=== PATIENT | female | born 1945 | race Caucasian/White ===

== ENCOUNTER 2017-01-19 02:50 | Observation (INO) | payer MEDICARE, BC ==
[2017-01-19 03:25] LABS: BASO % 0.9 % (0-6); EOS % 3.7 % (0-6); GRAN % 76.8 % (47-80); HEMATOCRIT 46.5 % (35.0-47.0); HEMOGLOBIN 13.8 gm/dl (11.6-16.0); LYMPH % 13.3 % (16-45); MEAN CELL VOLUME 71.4 fl (81-97); MEAN CORPUSCULAR HEMOGLOBIN 21.1 pg (27-33); MEAN CORPUSCULAR HGB CONC 29.7 g/dl (32-36); MEAN PLATELET VOLUME 10.5 fl (7.4-10.4); MONO % 5.3 % (0-9); PLATELET COUNT 604 K/uL (130-400); RED BLOOD COUNT 6.51 M/uL (3.80-5.40); RED CELL DISTRIBUTION WIDTH 22.5 % (11.5-14.5); WHITE BLOOD COUNT W/O DIFF 12.7 K/uL (4.2-12.2)
[2017-01-19 03:35] LABS: ALB/GLOB RATIO 1.3 (1.1-1.8); ALKALINE PHOSPHATASE 128 U/L (38-126); ALT/SGPT 43 U/L (9-52); ANION GAP 7.2 (7-16); AST/SGOT 33 U/L (14-36); BILIRUBIN,TOTAL 0.97 mg/dL (0.2-1.3); BLOOD UREA NITROGEN 31 mg/dL (7-17); CARBON DIOXIDE 28.8 mmol/L (22-30); CREATININE 0.9 mg/dL (0.52-1.04); EST GLOMERULAR FILTRATION RATE > 60 ml/min; GLUCOSE,RANDOM 249 mg/dL (70-110); TOTAL PROTEIN 7.2 gm/dL (6.3-8.2)
[2017-01-19 03:40] LABS: URINE APPEARANCE CLEAR; URINE BILIRUBIN NEGATIVE (NEGATIVE); URINE COLOR YELLOW; URINE KETONE NEGATIVE (NEGATIVE); URINE LEUKOCYTE ESTERASE NEGATIVE (NEGATIVE); URINE NITRITE NEGATIVE (NEGATIVE); URINE UROBILINOGEN 0.2 E.U./dL (0.20 - 1.00)
[2017-01-19 03:41] LABS: URINE BLOOD NEGATIVE (NEGATIVE)
--- NOTE | 2017-01-19 03:44 | Emergency Department Record ---
History of Present Illness - General Chief Complaint: Headache Migraine Stated Complaint: "SILENT MIGRAINE" NO PAIN Time Seen by Provider: 01/19/17 03:07 Source: Patient Mode of Arrival: Ambulatory Limitations: No limitations - History of Present Illness Initial Comments: for 6 days pt has been having 'spells' that last 1-3 minutes that make her feel 'terrible' and she even had syncope with it tonight. Complaint: Other Onset/Timin -: Days(s) Onset Description: Awoke with symptoms Quality: Other Consistency: Intermittent Improves With: Nothing Worsens With: None Associated Symptoms: Syncope Treatments Prior to Arrival: Acetaminophen - Related Data Home Medications Medication Instructions Recorded Confirmed Last Taken Betaxolol HCl [Betoptic S] 15 ml OP ASDIR 07/25/14 01/19/17 07/25/14 Gabapentin [Neurontin] 800 mg PO DAILY 07/25/14 01/19/17 07/25/14 Insulin Glargine,Hum.rec.anlog 53 unit SQ QHS 07/25/14 01/19/17 1 Day Ago [Lantus] ~07/24/14 Insulin Lispro [Humalog] 15 unit SQ ASDIR 07/25/14 01/19/17 07/25/14 Latanoprost [Xalatan] 2.5 ml OP ASDIR 07/25/14 01/19/17 1 Day Ago ~07/24/14 Levothyroxine Sodium [Unithroid] 150 mcg PO DAILY 07/25/14 01/19/17 07/25/14 Pioglitazone HCl [Actos] 15 mg PO ASDIR 07/25/14 01/19/17 1 Day Ago ~07/24/14 Pravastatin Sodium [Pravachol] 40 mg PO DAILY 07/25/14 01/19/17 1 Day Ago ~07/24/14 Ropinirole HCl [Requip] 0.5 mg PO QHS 07/25/14 01/19/17 1 Day Ago ~07/24/14 Bumetanide [Bumex] 0.5 mg PO ASDIR 05/06/16 01/19/17 Unknown Losartan Potassium [Cozaar] 25 mg PO DAILY 05/06/16 01/19/17 Unknown Acetaminophen [Tylenol Arthritis] 1,300 mg PO BID 01/19/17 01/19/17 Unknown Cholecalciferol (Vitamin D3) 3,000 unit PO DAILY 01/19/17 01/19/17 Unknown [Vitamin D3] Clobetasol Propionate/Emoll 15 gm TP ASDIR 01/19/17 01/19/17 Unknown [Clobetasol Emollient 0.05% Crm] Gabapentin [Neurontin] 400 mg PO QPM 01/19/17 01/19/17 Unknown Gabapentin [Neurontin] 800 mg PO QHS 01/19/17 01/19/17 Unknown Ropinirole HCl [Requip] 0.25 mg PO QPM 01/19/17 01/19/17 Unknown Ropinirole HCl [Requip] 0.375 mg PO QPM 01/19/17 01/19/17 Unknown Allergies Allergy/AdvReac Type Severity Reaction Status Date / Time aspirin AdvReac NAUSEA Verified 07/25/14 16:34 celecoxib [From Celebrex] AdvReac NAUSEA AND Verified 01/19/17 03:03 VOMITING fentanyl AdvReac NAUSEA AND Verified 07/25/14 16:34 VOMITING hydrocodone bitartrate AdvReac NAUSEA AND Verified 07/25/14 16:34 [From Vicodin] VOMITING NSAIDS (Non-Steroidal AdvReac NAUSEA AND Verified 01/19/17 03:03 Anti-Inflamma VOMITING Travel Screening - Travel/Exposure Within Last 30 Days Have you traveled within the last 30 days?: No - Travel/Exposure Within Last Year Have you traveled outside the [place] in the last year?: No - Additonal Travel Details Have you been exposed to anyone with a communicable illness?: No - Travel Symptoms Symptom Screening: None Review of Systems Reviewed: No additional complaints except as noted below Constitutional: Reports: As per HPI. Denies: Chills, Fever, Malaise, Night sweats, Weakness, Weight change Eyes: Reports: As per HPI. Denies: Eye discharge, Eye pain, Photophobia, Vision change ENT: Reports: As per HPI. Denies: Congestion, Dental pain, Ear pain, Epistaxis , Hearing loss, Throat pain Respiratory: Reports: As per HPI. Denies: Cough, Dyspnea, Hemoptysis, Stridor, Wheezes Cardiovascular: Reports: As per HPI. Denies: Arrhythmia, Chest pain, Dyspnea on exertion, Edema, Murmurs, Orthopnea, Palpitations, Paroxysmal nocturnal dyspnea, Rheumatic Fever, Syncope Endocrine: Reports: As per HPI. Denies: Fatigue, Heat or cold intolerance, Polydipsia, Polyuria Gastrointestinal: Reports: As per HPI. Denies: Abdominal pain, Constipation, Diarrhea, Hematemesis, Hematochezia, Melena, Nausea, Vomiting Genitourinary: Reports: As per HPI. Denies: Abnormal menses, Discharge, Dyspareunia, Dysuria, Frequency, Hematuria, Incontinence, Retention, Urgency Musculoskeletal: Reports: As per HPI. Denies: Arthralgia, Back pain, Gout, Joint swelling, Myalgia, Neck pain Skin: Reports: As per HPI. Denies: Bruising, Change in color, Change in hair/ nails, Lesions, Pruritus, Rash Neurological: Reports: As per HPI. Denies: Abnormal gait, Confusion, Headache, Numbness, Paresthesias, Seizure, Tingling, Tremors, Vertigo, Weakness Psychiatric: Reports: As per HPI. Denies: Anxiety, Auditory hallucinations, Depression, Homicidal thoughts, Suicidal thoughts, Visual hallucinations Hematological/Lymphatic: Reports: As per HPI. Denies: Anemia, Blood Clots, Easy bleeding, Easy bruising, Swollen glands Past Medical History - SOCIAL HISTORY Smoking Status: Never smoker Alcohol Use: None Drug Use: None - RESPIRATORY Hx Respiratory Disorders: Yes Hx Asthma: Yes - CARDIOVASCULAR Hx Cardio Disorders: Yes Hx Hypertension: Yes (pulmonary) - NEURO Hx Neuro Disorders: No - GI Hx GI Disorders: No - Hx Genitourinary Disorders: No - ENDOCRINE Hx Endocrine Disorders: Yes Hx Diabetes: Yes Hx Thyroid Disease: Yes - MUSCULOSKELETAL Hx Musculoskeletal Disorders: Yes Hx Arthritis: Yes Hx Fibromyalgia: Yes - PSYCH Hx Psych Problems: No - HEMATOLOGY/ONCOLOGY Hx Hematology/Oncology Disorders: Yes Comment:: polycythemia Family Medical History Any Significant Family History?: No Hx Stroke: Mother Physical Exam - General General Appearance: Alert, Oriented x3, Cooperative, Mild distress - Head Head exam: Normal inspection - Eye Eye exam: Normal appearance, PERRL, EOMI Pupils: Normal accommodation - ENT ENT exam: Normal exam, Mucous membranes moist, Normal external ear exam, Normal orophraynx Ear exam: Normal external inspection. negative: External canal tenderness Nasal Exam: Normal inspection. negative: Discharge, Sinus tenderness Mouth exam: Normal external inspection, Tongue normal Teeth exam: Normal inspection. negative: Dental caries Throat exam: Normal inspection. negative: Tonsillar erythema, Tonsillar exudate - Neck Neck exam: Normal inspection, Full ROM. negative: Tenderness - Respiratory Respiratory exam: Normal lung sounds bilaterally. negative: Respiratory distress - Cardiovascular Cardiovascular Exam: Regular rate, Normal rhythm, Normal heart sounds - GI/Abdominal GI/Abdominal exam: Soft, Normal bowel sounds. negative: Tenderness - Rectal Rectal exam: Deferred - exam: Deferred - Extremities Extremities exam: Normal inspection, Full ROM, Normal capillary refill. negative: Tenderness - Back Back exam: Reports: Normal inspection, Full ROM. Denies: Muscle spasm, Rash noted, Tenderness - Neurological Neurological exam: Alert, CN II-XII intact, Normal gait, Oriented X3 - Psychiatric Psychiatric exam: Normal affect, Normal mood - Skin Skin exam: Dry, Intact, Normal color, Warm Course Vital Signs 01/19/17 02:57 Temperature 97.7 F Pulse Rate [ 84 Pulse Ox Probe] Respiratory 20 Rate Blood Pressure 203/90 [Right Arm] Pulse Ox 94 L Medical Decision Making - Lab Data Result diagrams: 01/19/17 02:40 01/19/17 02:40 Lab Results 01/19/17 Range/Units 02:40 WBC 12.7 H (4.2-12.2) K/uL RBC 6.51 H (3.80-5.40) M/uL Hgb 13.8 (11.6-16.0) gm/dl Hct 46.5 (35.0-47.0) % MCV 71.4 L (81-97) fl MCH 21.1 L (27-33) pg MCHC 29.7 L (32-36) g/dl RDW 22.5 H (11.5-14.5) % Plt Count 604 H (130-400) K/uL MPV 10.5 H (7.4-10.4) fl Gran % 76.8 (47-80) % Lymphocytes % 13.3 L (16-45) % Monocytes % 5.3 (0-9) % Eosinophils % 3.7 (0-6) % Basophils % 0.9 (0-6) % Disposition Disposition: Admit Clinical Impression: Syncope Qualifiers: Syncope type: unspecified Qualified Code(s): R55 - Syncope and collapse Disposition: Still a Patient at [facility] Decision to Admit: Admit from ER Decision to Admit Date: 01/19/17 Decision to Admit Time: 04:58 Forms: Patient Portal Access Quality - Quality Measures Quality Measures: N/A - Blood Pressure Screening Does Patient Have Any of the Following: Active Dx of HTN Blood Pressure Classification: Pre-Hypertensive BP Reading Systolic Measurement: 172 Diastolic Measurement: 81 Screening for High Blood Pressure: Patient Exclusion, Hx of HTN [[id number]] Pre-Hypertensive Follow-up Interventions: Referral to alternative/primary care provider.
[2017-01-19] MEDS ORDERED: LABETALOL HCL 5MG/ML, 20ML VIAL IV ONE (04:23)
[2017-01-19] MEDS ORDERED: NITROGLYCERIN 0.4MG SL TABLET #25 BTL SL PRN (05:55)
[2017-01-19] MEDS ORDERED: BUMETANIDE 1 MG TABLET PO SCH (05:55)
[2017-01-19] MEDS ORDERED: ACETAMINOPHEN 500 MG TABLET PO PRN (05:55)
[2017-01-19] MEDS ORDERED: INSULIN LISPRO 15 UNIT SQ SCH (05:55)
[2017-01-19] MEDS ORDERED: LEVOTHYROXINE SODIUM 150 MCG TABLET PO SCH (06:30)
[2017-01-19] MEDS ORDERED: LEVEMIR FLEXTOUCH 100 UNIT/ML INSULIN PEN SQ SCH (06:30)
--- NOTE | 2017-01-19 08:47 | CT SCAN REPORT ---
EXAM: HEAD CT WITHOUT CONTRAST HISTORY: SYNCOPE, DIZZINESS. TECHNIQUE: Contiguous axial images from the cerebral convexities to the foramen magnum were obtained without contrast. Comparison: None. Encounter: Initial. FINDINGS: The brain volume is normal. No acute intracranial hemorrhage, mass effect, or midline shift. No CT evidence of acute infarct. The ventricles, basal cisterns and sulci are within normal limits. Bilateral lens implants. The osseous structures and soft tissues are unremarkable. IMPRESSION: NO ACUTE INTRACRANIAL PROCESS. JOB NUMBER: [id number] [facility]
[2017-01-19] MEDS ORDERED: HUMALOG SC ONE (09:00)
[2017-01-19] MEDS ORDERED: PATIENT OWN MED: LOSARTAN 25 MG PO SCH (10:00)
[2017-01-19] MEDS ORDERED: LEVOTHYROXINE 150 MCG PO SCH (10:00)
--- NOTE | 2017-01-19 10:09 | History & Physical ---
History of Present Illness - Date of Service Date of Service for History & Physical: 01/19/17 - History of Present Illness Admitting Diagnosis: syncope History of Present Illness: 71 yo female admitted w/ CC of syncopal episode. PMHx of IDDM, obesity, hypothyroidism, RLS, IBS, pulmonary HTN, polycythemia, and urinary incontinence. Patient presented to our ED early this morning by EMS after a syncopal episode. Syncopal episode occurred around 1 am. Patient states she was sitting at the edge of her bed and she lost consciousness. Patient's was present to witness this. Just prior to her LOC, patient had an episode of lightheadedness/ dizziness, however did not loose consciousness during this episode. Her noted that these episodes occurred within 5 minutes of each other. Patient reports episodes of dizziness/fogginess/lightheadedness sporadically since last Monday. Symptoms precipitated by concentration/focusing. Alleviated with rest/sitting still. Associated symptoms include gas/belching. Upon presentation, BP 203/90, HR 84, RR 20, pulse ox 94 on RA, temp 97.7. wbc 12.7, hgb 13.8, hct 46.5, plt 604, BUN 31, Cr 0.9, glucose 249. CE negative x 1. UA negative for infectious process. acetominophen level normal. Head CT negative. EKG: possible tachy-sherman, RBBB. Patient placed on Telemetry and admitted for further medical management. This morning, patient is sitting up in bed with her at bedside. States she's not feeling herself this morning though can't put a finger on what it is. Denies increased SOB, CP, fever, chills, diaphoresis, n/v, headache, abd pain , change in bowel habits, blood in stool, rash, dysphagia, dysuria, weakness or loss in strength. She admits to a significant amount of gas/belching. She denies any h/o CVA or KS. MOther passed of CVA at 83. father passed of cardiac causes at 89yo. Patient follows with Dr. Angelo at [facility] for h/o pulmonary HTN. States she saw him last in September and is scheduled to see him again this month. States Dr. Angelo had discussed going forth with a cardiac cath to evaluate wedge pressure, though she hasn't heard anything more re this. Follows with Dr. Broussard for h/o polycythemia. Scheduled for therapeutic phlebotomy today at [facility]. Patient saw her PCP on Monday and was told she may be having ocular migraines w/o pain. While I was in evaluating patient, she experience a similar episode of lightheadedness/dizziness. Did not loose consciousness. Was able to stay seated up in bed. No CP, SOB, diaphoresis, or weakness during this episode. PCP: Dr. Elkins Hematology: Dr. Broussard Cardiology: Dr. Angelo [facility] Travel Screening - Travel/Exposure Within Last 30 Days Have you traveled within the last 30 days?: No - Travel/Exposure Within Last Year Have you traveled outside the [place] in the last year?: No - Additonal Travel Details Have you been exposed to anyone with a communicable illness?: No - Travel Symptoms Symptom Screening: None Review of Systems Constitutional: Reports: As per HPI. Denies: Chills, Fever, Malaise, Night sweats, Weakness, Weight change Eyes: Reports: As per HPI. Denies: Eye discharge, Eye pain, Photophobia, Vision change ENT: Reports: As per HPI. Denies: Congestion, Dental pain, Ear pain, Epistaxis , Hearing loss, Throat pain Respiratory: Reports: As per HPI. Denies: Cough, Dyspnea, Hemoptysis, Stridor, Wheezes Cardiovascular: Reports: As per HPI. Denies: Arrhythmia, Chest pain, Dyspnea on exertion, Edema, Murmurs, Orthopnea, Palpitations, Paroxysmal nocturnal dyspnea, Rheumatic Fever, Syncope Endocrine: Reports: As per HPI. Denies: Fatigue, Heat or cold intolerance, Polydipsia, Polyuria Gastrointestinal: Reports: As per HPI. Denies: Abdominal pain, Constipation, Diarrhea, Hematemesis, Hematochezia, Melena, Nausea, Vomiting Genitourinary: Reports: As per HPI. Denies: Abnormal menses, Discharge, Dyspareunia, Dysuria, Frequency, Hematuria, Incontinence, Retention, Urgency Musculoskeletal: Reports: As per HPI. Denies: Arthralgia, Back pain, Gout, Joint swelling, Myalgia, Neck pain Skin: Reports: As per HPI. Denies: Bruising, Change in color, Change in hair/ nails, Lesions, Pruritus, Rash Neurological: Reports: As per HPI. Denies: Abnormal gait, Confusion, Headache, Numbness, Paresthesias, Seizure, Tingling, Tremors, Vertigo, Weakness Psychiatric: Reports: As per HPI. Denies: Anxiety, Auditory hallucinations, Depression, Homicidal thoughts, Suicidal thoughts, Visual hallucinations Hematological/Lymphatic: Reports: As per HPI. 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 - GI Hx GI Disorders: Yes Comment:: fluxuates between diarrhea and constipation - Hx Genitourinary Disorders: No Comment:: incontinence - ENDOCRINE Hx Endocrine Disorders: Yes Hx Diabetes: Yes Hx Thyroid Disease: Yes - MUSCULOSKELETAL Hx Musculoskeletal Disorders: Yes Hx Arthritis: Yes Hx Fibromyalgia: Yes - PSYCH Hx Psych Problems: No - HEMATOLOGY/ONCOLOGY Hx Hematology/Oncology Disorders: Yes Comment:: polycythemia Family Medical History Any Significant Family History?: Yes Hx Stroke: Mother H&P Meds/Allergies - Allergies Allergies: Allergies Allergy/AdvReac Type Severity Reaction Status Date / Time aspirin AdvReac NAUSEA Verified 07/25/14 16:34 celecoxib [From Celebrex] AdvReac NAUSEA AND Verified 01/19/17 03:03 VOMITING fentanyl AdvReac NAUSEA AND Verified 07/25/14 16:34 VOMITING hydrocodone bitartrate AdvReac NAUSEA AND Verified 07/25/14 16:34 [From Vicodin] VOMITING NSAIDS (Non-Steroidal AdvReac NAUSEA AND Verified 01/19/17 03:03 Anti-Inflamma VOMITING - Home Medications Home Medications Medication Instructions Recorded Confirmed Last Taken Betaxolol HCl [Betoptic S] 1 drop OPTH Q12H 07/25/14 01/19/17 07/25/14 Gabapentin [Neurontin] 800 mg PO 1600 07/25/14 01/19/17 07/25/14 Insulin Glargine,Hum.rec.anlog 53 unit SQ QHS 07/25/14 01/19/17 1 Day Ago [Lantus] ~07/24/14 Insulin Lispro [Humalog] 15 unit SQ BIDINS 07/25/14 01/19/17 07/25/14 Latanoprost [Xalatan] 1 drop OPTH QHS 07/25/14 01/19/17 1 Day Ago ~07/24/14 Levothyroxine Sodium [Unithroid] 150 mcg PO DAILYTHY 07/25/14 01/19/17 07/25/14 Pioglitazone HCl [Actos] 15 mg PO QHS 07/25/14 01/19/17 1 Day Ago ~07/24/14 Pravastatin Sodium [Pravachol] 40 mg PO QHS 07/25/14 01/19/17 1 Day Ago ~07/24/14 Ropinirole HCl [Requip] 0.5 mg PO 0030 07/25/14 01/19/17 1 Day Ago ~07/24/14 Bumetanide [Bumex] 0.5 mg PO ASDIR PRN 05/06/16 01/19/17 Unknown Losartan Potassium [Cozaar] 25 mg PO DAILY 05/06/16 01/19/17 Unknown Acetaminophen [Tylenol Arthritis] 1,300 mg PO BID 01/19/17 01/19/17 Unknown Cholecalciferol (Vitamin D3) 3,000 unit PO DAILY 01/19/17 01/19/17 Unknown [Vitamin D3] Clobetasol Propionate/Emoll 15 gm TP BID 01/19/17 01/19/17 Unknown [Clobetasol Emollient 0.05% Crm] Gabapentin [Neurontin] 400 mg PO 1900 01/19/17 01/19/17 Unknown Gabapentin [Neurontin] 800 mg PO 0000 01/19/17 01/19/17 Unknown Insulin Lispro [Humalog] 5 unit SQ 1200 01/19/17 01/19/17 Unknown Ropinirole HCl [Requip] 0.25 mg PO 1900 01/19/17 01/19/17 Unknown Ropinirole HCl [Requip] 0.375 mg PO 1600 01/19/17 01/19/17 Unknown - Active Medications Active Medications: Current Medications Acetaminophen (Tylenol 500mg Tab) 1,000 mg PO Q6H PRN PRN Reason: PAIN/TEMP Bumetanide (Bumex) 0.5 mg PO ASDIR DEANDRA Nitroglycerin (Nitrostat 0.4mg) 0.4 mg SL Q5MIN PRN PRN Reason: CHEST PAIN Non-Formulary Medication (Insulin Lispro [Humalog]) 15 unit SQ ASDIR [facility] Patient Own Med: (Gabapentin 400 Mg) 2 each PO 0000 [facility] Patient Own Med: (Ropinirole 0.5 Mg) 1 each PO 0000 [facility] Patient Own Med: Betoptic 0.25% Opth Drops 1 each OPTH Q12H [facility] Patient Own Med: (Gabapentin 400 Mg) 1 each PO 2100 [facility] Patient Own Med: (Gabapentin 400 Mg) 2 each PO 1600 [facility] Patient Own Med: (Losartan 25 Mg) 1 each PO DAILY [facility] Patient Own Med: (Pioglitazone 15 Mg) 1 each PO QHS [facility] Patient Own Med: (Pravastatin 40 Mg) 1 each PO QHS [facility] Patient Own Med: (Ropinirole 0.5 Mg) 0.5 each PO 2100 [facility] Patient Own Med: (Ropinirole 0.5 Mg) 0.75 each PO 1600 [facility] Patient Own Med: (Lantus Insulin) 53 each SC QHS [facility] Patient Own Med: Levothyroxine 150 Mcg 1 each PO DAILYTHY [facility] Physical Exam - Vital Signs Vital Signs: Vital Signs - Last 24 Hrs Temp Pulse Resp BP Pulse Ox 01/19/17 07:55 98.4 F 71 18 144/68 97 01/19/17 06:29 97 01/19/17 05:55 97.8 F 66 26 H 196/93 95 - General General Appearance: Alert, Oriented x3, Cooperative, No acute distress Limitations: No limitations - Head Head exam: Normal inspection - Eye Eye exam: Normal appearance, PERRL, EOMI Pupils: Normal accommodation - ENT ENT exam: Normal exam, Mucous membranes moist, Normal external ear exam, Normal orophraynx Ear exam: Normal external inspection. negative: External canal tenderness Nasal Exam: Normal inspection. negative: Discharge, Sinus tenderness Mouth exam: Normal external inspection, Tongue normal Teeth exam: Normal inspection. negative: Dental caries Throat exam: Normal inspection. negative: Tonsillar erythema, Tonsillar exudate - Neck Neck exam: Normal inspection, Full ROM. negative: Tenderness - Respiratory Respiratory exam: Normal lung sounds bilaterally. negative: Respiratory distress - Cardiovascular Cardiovascular Exam: Regular rate, Normal rhythm, Normal heart sounds - GI/Abdominal GI/Abdominal exam: Soft, Hyperactive bowel sounds. negative: Tenderness - Rectal Rectal exam: Deferred - exam: Deferred - Extremities Extremities exam: Normal inspection, Full ROM, Normal capillary refill. negative: Tenderness - Back Back exam: Reports: Normal inspection, Full ROM. Denies: Muscle spasm, Rash noted, Tenderness - Neurological Neurological exam: Alert, CN II-XII intact, Normal gait, Oriented X3 - Psychiatric Psychiatric exam: Normal affect, Normal mood - Skin Skin exam: Dry, Intact, Normal color, Warm Results - Labs Result Diagrams: 01/19/17 02:40 01/19/17 02:40 VTE H&P Assessment - Risk for VTE Risk for VTE: Yes Risk Level: Moderate Risk Assessment Date: 01/19/17 Risk Assessment Time: 09:30 VTE Orders Placed or Will Be Placed: Yes Plan - Detailed Diagnosis and Plan (1) Syncope Current Visit: Yes Status: Acute Qualifiers: Syncope type: unspecified Qualified Code(s): R55 - Syncope and collapse Base Code: R55 - SYNCOPE AND COLLAPSE Comment: 01/19- neurologic vs. cardiac vs. other? - head ct negative. - EKG: ready by ED physician. possible sherman- tachy episode, RBBB - CE negative x 1, cbc/cmp relatively unremarkable - negative UA - continue telemetry - cardiac consult vs. acute care transfer for further cardiac/neurologic work up (2) IDDM (insulin dependent diabetes mellitus) Current Visit: Yes Status: Acute Base Code: E11.9 - TYPE 2 DIABETES MELLITUS WITHOUT COMPLICATIONS; Z79.4 - AUTHOR AGENT (CURRENT) USE OF INSULIN Comment: 01/19- accu check achqhs - continue home medications (Lantus 53 U qhs, Humalog 15 U sq deandra, actos 15 qhs) (3) DVT prophylaxis Current Visit: Yes Status: Acute Base Code: [id number] - Comment: 01/19- Lovenox 40 mg sq daily (4) Full code status Current Visit: Yes Status: Acute Base Code: Z78.9 - OTHER SPECIFIED HEALTH STATUS Comment: 01/19- pt is full code
[2017-01-19] MEDS ORDERED: ENOXAPARIN 40 MG/0.4 ML SYR SQ SCH (10:45)
--- NOTE | 2017-01-19 10:45 | Discharge Summary ---
Providers Discharge Summary Date: 01/19/17 Date of admission: 01/19/17 05:34 Expected Date of Discharge: 01/19/17 Attending physician: SEPIDEH BUTT Physical Exam - Vital Signs Vital Signs: Vital Signs - Last 24 Hrs Temp Pulse Resp BP Pulse Ox 01/19/17 09:00 70 18 01/19/17 07:55 98.4 F 71 18 144/68 97 01/19/17 06:29 97 01/19/17 05:55 97.8 F 66 26 H 196/93 95 - General General Appearance: Alert, Oriented x3, Cooperative, Mild distress (while in the room for exam due to episode of dizziness/lightheadedness) Limitations: No limitations - Head Head exam: Normal inspection - Eye Eye exam: Normal appearance, PERRL, EOMI Pupils: Normal accommodation - ENT ENT exam: Normal exam, Mucous membranes moist, Normal external ear exam, Normal orophraynx Ear exam: Normal external inspection. negative: External canal tenderness Nasal Exam: Normal inspection. negative: Discharge, Sinus tenderness Mouth exam: Normal external inspection, Tongue normal Teeth exam: Normal inspection. negative: Dental caries Throat exam: Normal inspection. negative: Tonsillar erythema, Tonsillar exudate - Neck Neck exam: Normal inspection, Full ROM. negative: Tenderness - Respiratory Respiratory exam: Normal lung sounds bilaterally. negative: Respiratory distress - Cardiovascular Cardiovascular Exam: Regular rate, Normal rhythm, Normal heart sounds - GI/Abdominal GI/Abdominal exam: Soft, Hyperactive bowel sounds. negative: Tenderness - Rectal Rectal exam: Deferred - exam: Deferred - Extremities Extremities exam: Normal inspection, Full ROM, Normal capillary refill. negative: Tenderness - Back Back exam: Reports: Normal inspection, Full ROM. Denies: Muscle spasm, Rash noted, Tenderness - Neurological Neurological exam: Alert, CN II-XII intact, Normal gait, Oriented X3 - Psychiatric Psychiatric exam: Normal affect, Normal mood - Skin Skin exam: Dry, Intact, Normal color, Warm Hospitalization - Hospitalization Admission Diagnosis: syncope - Problem List/Discharge Diagnosis (1) Syncope Current Visit: Yes Status: Acute Discharge Diagnosis: Syncope type: unspecified Qualified Code(s): R55 - Syncope and collapse Base Code: R55 - SYNCOPE AND COLLAPSE Comment: 01/19- neurologic vs. cardiac vs. other? - head ct negative. - EKG: read by ED physician. possible sherman- tachy episode, RBBB - CE negative x 1, cbc/cmp relatively unremarkable - negative UA - continue telemetry until transfer - Spoke with Dr. Fernandez at [facility] regarding patient's case. He accepts acute care transfer for further medical management noting her h/o syncope, pulm htn and EKG suggesting tachy sherman. (2) IDDM (insulin dependent diabetes mellitus) Current Visit: Yes Status: Acute Base Code: E11.9 - TYPE 2 DIABETES MELLITUS WITHOUT COMPLICATIONS; Z79.4 - [employer] (CURRENT) USE OF INSULIN Comment: 01/19- continue home medications (Lantus 53 U qhs, Humalog 15 U sq jovita, actos 15 qhs) (3) Full code status Current Visit: Yes Status: Acute Base Code: Z78.9 - OTHER SPECIFIED HEALTH STATUS Comment: 01/19- pt remained full code - Hospitalization Course Disposition: Acute Care Hospital Transfer Hospital Course: 71 yo female admitted w/ CC of syncopal episode. PMHx of IDDM, obesity, hypothyroidism, RLS, IBS, pulmonary HTN, polycythemia, and urinary incontinence. Patient presented to our ED early this morning by EMS after a syncopal episode. Syncopal episode occurred around 1 am. Patient states she was sitting at the edge of her bed and she lost consciousness. Patient's was present to witness this. Just prior to her LOC, patient had an episode of lightheadedness/ dizziness, however did not loose consciousness during this episode. Her noted that these episodes occurred within 5 minutes of each other. Patient reports episodes of dizziness/fogginess/lightheadedness sporadically since last Monday. Symptoms precipitated by concentration/focusing. Alleviated with rest/sitting still. Associated symptoms include gas/belching. Upon presentation, BP 203/90, HR 84, RR 20, pulse ox 94 on RA, temp 97.7. wbc 12.7, hgb 13.8, hct 46.5, plt 604, BUN 31, Cr 0.9, glucose 249. CE negative x 1. UA negative for infectious process. acetominophen level normal. Head CT negative. EKG: possible tachy-sherman, RBBB. Patient placed on Telemetry and admitted for further medical management. This morning, patient is sitting up in bed with her at bedside. States she's not feeling herself this morning though can't put a finger on what it is. Denies increased SOB, CP, fever, chills, diaphoresis, n/v, headache, abd pain , change in bowel habits, blood in stool, rash, dysphagia, dysuria, weakness or loss in strength. She admits to a significant amount of gas/belching. She denies any h/o CVA or RI. MOther passed of CVA at 83. father passed of cardiac causes at 89yo. Patient follows with Dr. Angelo at [facility] for h/o pulmonary HTN. States she saw him last in September and is scheduled to see him again this month. States Dr. Angelo had discussed going forth with a cardiac cath to evaluate wedge pressure, though she hasn't heard anything more re this. Follows with Dr. Broussard for h/o polycythemia. Scheduled for therapeutic phlebotomy today at [facility]. Patient saw her PCP on Monday and was told she may be having ocular migraines w/o pain. While I was in evaluating patient, she experience a similar episode of lightheadedness/dizziness. Did not loose consciousness. Was able to stay seated up in bed. No CP, SOB, diaphoresis, or weakness during this episode. PCP: Dr. Elkins Hematology: Dr. Broussard Cardiology: Dr. Angelo [facility] Procedures: Cardiology Procedures 01/19/17 07:15 EKG NOW Discharge Medications - Discharge Medications Home Medications: Ambulatory Orders Betaxolol HCl [Betoptic S] 1 drop OPTH Q12H 07/25/14 [Last Taken 07/25/14] Gabapentin [Neurontin] 800 mg PO 1600 07/25/14 [Last Taken 07/25/14] Insulin Glargine,Hum.rec.anlog [Lantus] 53 unit SQ QHS 07/25/14 [Last Taken 1 Day Ago ~07/24/14] Insulin Lispro [Humalog] 15 unit SQ BIDINS 07/25/14 [Last Taken 07/25/14] Latanoprost [Xalatan] 1 drop OPTH QHS 07/25/14 [Last Taken 1 Day Ago ~07/24/14] Levothyroxine Sodium [Unithroid] 150 mcg PO DAILYTHY 07/25/14 [Last Taken ] Pioglitazone HCl [Actos] 15 mg PO QHS 02/13/15 [Last Taken 1 Day Ago ~07/24/14] Pravastatin Sodium [Pravachol] 40 mg PO QHS 07/25/14 [Last Taken 1 Day Ago ~05/26] Ropinirole HCl [Requip] 0.5 mg PO 0030 07/25/14 [Last Taken 1 Day Ago ~07/24/14] Bumetanide [Bumex] 0.5 mg PO ASDIR PRN 05/06/16 [Last Taken Unknown] Losartan Potassium [Cozaar] 25 mg PO DAILY 05/06/16 [Last Taken Unknown] Acetaminophen [Tylenol Arthritis] 1,300 mg PO BID 01/19/17 [Last Taken Unknown] Cholecalciferol (Vitamin D3) [Vitamin D3] 3,000 unit PO DAILY 01/19/17 [Last Taken Unknown] Clobetasol Propionate/Emoll [Clobetasol Emollient 0.05% Crm] 15 gm TP BID [Last Taken Unknown] Gabapentin [Neurontin] 400 mg PO 1900 01/19/17 [Last Taken Unknown] Gabapentin [Neurontin] 800 mg PO 0000 01/19/17 [Last Taken Unknown] Insulin Lispro [Humalog] 5 unit SQ 1200 01/19/17 [Last Taken Unknown] Ropinirole HCl [Requip] 0.25 mg PO 1900 01/19/17 [Last Taken Unknown] Ropinirole HCl [Requip] 0.375 mg PO 1600 01/19/17 [Last Taken Unknown] Discharge Plan - Discharge Instructions Activity at Discharge: Other (as per [facility]) Diet at Discharge: Diabetic Diet
[2017-01-19] MEDS ORDERED: BETAXOLOL 0.25% OPTH SCH (12:00)
[2017-01-19] MEDS ORDERED: HUMALOG INSULIN SC ONE (12:15)
[2017-01-19 12:37] LABS: CKMB 2.3 ug/L (0-6); TROPONIN I 0.013 ng/mL (0.00-0.034)
[2017-01-19] MEDS ORDERED: PATIENT OWN MED: ROPINIROLE 0.5 MG PO SCH ×2 (16:00→21:00)
[2017-01-19] MEDS ORDERED: PATIENT OWN MED: GABAPENTIN 400 MG PO SCH ×2 (16:00→21:00)
[2017-01-19] MEDS ORDERED: LANTUS INSULIN SC SCH (22:00)
[2017-01-19] MEDS ORDERED: PIOGLITAZONE 15 MG PO SCH (22:00)
[2017-01-19] MEDS ORDERED: PATIENT OWN MED: PRAVASTATIN 40 MG PO SCH (22:00)
[2017-01-20] MEDS ORDERED: PATIENT OWN MED: GABAPENTIN 400 MG PO SCH
[2017-01-20] MEDS ORDERED: PATIENT OWN MED: ROPINIROLE 0.5 MG PO SCH
== END 2017-01-19 13:10 | disposition short-term general hospital (02) ==
LOC: ER 02:50 → MEDSURG 05:34
PROVIDERS: ADMIT Family Medicine; ATTEND Family Medicine
DX: R55 Syncope and collapse (principal); E11.9 Type 2 diabetes mellitus without complications; Z79.4 Long term (current) use of insulin; E03.9 Hypothyroidism, unspecified; I27.2 Other secondary pulmonary hypertension; D45 Polycythemia vera; M79.7 Fibromyalgia; G25.81 Restless legs syndrome
CPT/HCPCS: 99285 ×2; 96374; 85025; 82553; 84484; 80053; 36416; 82948; 81003; 70450; 94760; 93005; 93010; G0378; G0480; 80329; 99236

== ENCOUNTER 2017-01-24 10:14 | Emergency (ER) | payer MEDICARE, BC ==
--- NOTE | 2017-01-24 10:51 | Emergency Department Record ---
History of Present Illness - General Chief Complaint: Seizures Stated Complaint: SEIZURE Time Seen by Provider: 01/24/17 10:25 Source: Patient, Family, EMS Mode of Arrival: Stretcher - History of Present Illness Initial Comments: 71 yo female presents to the ED with recurring episodes of loss of consciousness. She was evaluated and admitted to [facility] on 01/19 for an event. She was transferred to [facility] for further work up and admission for 24 hours per the . He reports she did not have any events in the hospital except a 5 ventricular beats. She had a return of symptoms yesterday with brief LOC. This has occurred several times since then. She has a brief 10 -15 seconds of now feeling well then an abrupt, brief LOC of 2-5 seconds with some shaking witnessed by the . Her PCP is Dr Elkins. Her book illustrator is Dr Angelo. the documented 2 episosed on 01/23 and two episodes today. He reports feeling her radial pulse and noted it to be slowed and irregular then back to normal rate of 60-70. MD Complaint: Loss of consciousness Onset/Timin -: Hour(s) -: Second(s) Seizure History: Other Place: Home Associated Symptoms: Denies other symptoms - Related Data Home Medications Medication Instructions Recorded Confirmed Last Taken Betaxolol HCl [Betoptic S] 1 drop OPTH Q12H 07/25/14 01/24/17 01/23/17 Gabapentin [Neurontin] 800 mg PO 1600 07/25/14 01/24/17 01/23/17 Insulin Glargine,Hum.rec.anlog 53 unit SQ QHS 07/25/14 01/24/17 01/23/17 [Lantus] Insulin Lispro [Humalog] 15 unit SQ BIDINS 07/25/14 01/24/17 01/23/17 Latanoprost [Xalatan] 1 drop OPTH QHS 07/25/14 01/24/17 01/23/17 Levothyroxine Sodium [Unithroid] 150 mcg PO DAILYTHY 07/25/14 01/24/17 01/24/17 Pioglitazone HCl [Actos] 15 mg PO QHS 07/25/14 01/24/17 01/23/17 Pravastatin Sodium [Pravachol] 40 mg PO QHS 07/25/14 01/24/17 01/23/17 Ropinirole HCl [Requip] 0.5 mg PO 0030 07/25/14 01/24/17 01/23/17 Bumetanide [Bumex] 0.5 mg PO ASDIR PRN 05/06/16 01/24/17 01/23/17 Losartan Potassium [Cozaar] 25 mg PO DAILY 05/06/16 01/24/17 01/23/17 Acetaminophen [Tylenol Arthritis] 1,300 mg PO BID 01/19/17 01/24/17 01/23/17 Cholecalciferol (Vitamin D3) 3,000 unit PO DAILY 01/19/17 01/24/17 01/23/17 [Vitamin D3] Clobetasol Propionate/Emoll 15 gm TP BID 01/19/17 01/24/17 01/23/17 [Clobetasol Emollient 0.05% Crm] Gabapentin [Neurontin] 400 mg PO 1900 01/19/17 01/24/17 01/23/17 Gabapentin [Neurontin] 800 mg PO 0000 01/19/17 01/24/17 01/23/17 Insulin Lispro [Humalog] 5 unit SQ 1200 01/19/17 01/24/17 01/23/17 Ropinirole HCl [Requip] 0.25 mg PO 1900 01/19/17 01/24/17 01/23/17 Ropinirole HCl [Requip] 0.375 mg PO 1600 01/19/17 01/24/17 01/23/17 Allergies Allergy/AdvReac Type Severity Reaction Status Date / Time aspirin AdvReac NAUSEA Verified 07/25/14 16:34 celecoxib [From Celebrex] AdvReac NAUSEA AND Verified 01/19/17 03:03 VOMITING fentanyl AdvReac NAUSEA AND Verified 07/25/14 16:34 VOMITING hydrocodone bitartrate AdvReac NAUSEA AND Verified 07/25/14 16:34 [From Vicodin] VOMITING NSAIDS (Non-Steroidal AdvReac NAUSEA AND Verified 01/19/17 03:03 Anti-Inflamma VOMITING Travel Screening - Travel/Exposure Within Last 30 Days Have you traveled within the last 30 days?: No - Travel/Exposure Within Last Year Have you traveled outside the [place] in the last year?: No - Additonal Travel Details Have you been exposed to anyone with a communicable illness?: No - Travel Symptoms Symptom Screening: None Review of Systems Constitutional: Reports: Malaise, Weakness. Denies: Chills, Fever Eyes: Denies: Eye discharge ENT: Denies: Congestion, Throat pain Respiratory: Denies: Cough, Dyspnea, Hemoptysis, Stridor, Wheezes Cardiovascular: Reports: Palpitations, Syncope. Denies: Chest pain Endocrine: Reports: Fatigue Gastrointestinal: Denies: Abdominal pain, Diarrhea, Nausea, Vomiting Genitourinary: Denies: Dysuria, Urgency Musculoskeletal: Denies: Arthralgia, Back pain, Joint swelling, Myalgia Skin: Denies: Bruising, Change in color, Rash Neurological: Reports: Confusion. Denies: Headache, Numbness, Vertigo, Weakness Psychiatric: Denies: Anxiety Hematological/Lymphatic: Denies: Blood Clots, Easy bleeding, Easy bruising, Swollen glands Past Medical History - SOCIAL HISTORY Smoking Status: Never smoker Alcohol Use: None Drug Use: None - RESPIRATORY Hx Respiratory Disorders: Yes Hx Asthma: Yes Hx Sleep Apnea: Yes Hx of CPAP: Yes Comment:: pulmonary hypertension, 2L of O2 when laying down or at night - CARDIOVASCULAR Hx Cardio Disorders: Yes Hx Cardiac Cath: Yes Hx Hypertension: Yes (pulmonary) - NEURO Hx Neuro Disorders: Yes Comment:: visual auras for about 10 years - GI Hx GI Disorders: Yes Comment:: fluxuates between diarrhea and constipation - Hx Genitourinary Disorders: No Comment:: incontinence - ENDOCRINE Hx Endocrine Disorders: Yes Hx Diabetes: Yes Hx Thyroid Disease: Yes - MUSCULOSKELETAL Hx Musculoskeletal Disorders: Yes Hx Arthritis: Yes Hx Fibromyalgia: Yes - PSYCH Hx Psych Problems: No - HEMATOLOGY/ONCOLOGY Hx Hematology/Oncology Disorders: Yes Comment:: polycythemia Family Medical History Any Significant Family History?: No Hx Stroke: Mother Physical Exam - General General Appearance: Alert, Oriented x3, Cooperative, No acute distress Limitations: No limitations - Head Head exam: Normal inspection - Eye Eye exam: Normal appearance, PERRL. negative: Conjunctival injection, Periorbital swelling - ENT ENT exam: Normal exam, Mucous membranes moist Ear exam: Normal external inspection Nasal Exam: Normal inspection Mouth exam: Normal external inspection Teeth exam: Normal inspection Throat exam: Normal inspection - Neck Neck exam: Normal inspection, Full ROM. negative: Tenderness - Respiratory Respiratory exam: Normal lung sounds bilaterally. negative: Respiratory distress, Rhonchi, Stridor, Wheezes - Cardiovascular Cardiovascular Exam: Regular rate, Normal rhythm, Normal heart sounds Peripheral Pulses: 2+: Radial (R), Radial (L), Dorsalis Pedis (R), Dorsalis Pedis (L) - GI/Abdominal GI/Abdominal exam: Soft. negative: Tenderness - Rectal Rectal exam: Deferred - exam: Deferred - Extremities Extremities exam: Normal inspection, Full ROM, Normal capillary refill. negative: Pedal edema, Tenderness - Back Back exam: Reports: Normal inspection, Full ROM. Denies: Muscle spasm, Rash noted, Tenderness - Neurological Neurological exam: Alert, CN II-XII intact, Normal gait, Oriented X3, Reflexes normal. negative: Altered, Motor sensory deficit - Psychiatric Psychiatric exam: Normal affect, Normal mood - Skin Skin exam: Dry, Intact, Normal color, Warm Course Vital Signs 01/24/17 10:20 Temperature 98.1 F Pulse Rate 76 Respiratory 20 Rate Blood Pressure 202/83 Pulse Ox 96 - Reevaluation(s) Reevaluation #1: EKG NSR rate of 76, intervals Qtc 475, [place], QRS 141 with RBBB, ST no acute changes. No changes from 01/19/17 01/24/17 10:51 Reevaluation #2: [facility] EMR reviewed Will obtain [facility] records if available. 01/24/17 10:57 Reevaluation #3: The labs were reviewed No acute changes on the CBC The K on the CMP was 5.4, Magnesium is 1.8 The Troponin is normal 01/24/17 11:35 BP 189/82 01/24/17 11:37 Reevaluation #4: I SW Dr Bobo of [facility] He accepts the patient to [facility] for readmission for syncope 01/24/17 11:[address] was reported as negative 01/24/17 12:18 [facility] was contacted No bed assigned yet The patient and family were updated 01/24/17 13:42 01/24/17 13:55 The patient had a symptomatic episode. Rhythm strips were obtained. She appears to have a Heart bloke. With one time frame of 11 beats without ventricular depolarization. Pacing pads placed The episode resolved and she is asymptomatic ONE CALL was updated. I recommend ED to ED if bed is not available. 01/24/17 14:00 Repeat brief episode occurred with return to NSR and normal mention. 01/24/17 14:24 I ALFREDO Albarran of the ED He accepts the patient for transfer 01/24/17 14:30 Dr Maldonado accepts the patient for transfer to 442- Bed 1. He will be the admitting physician. 01/24/17 14:37 Medical Decision Making - Lab Data Result diagrams: 01/24/17 10:48 01/24/17 10:48 Disposition Disposition: Transfer Clinical Impression: Syncope Qualifiers: Syncope type: unspecified Qualified Code(s): R55 - Syncope and collapse Disposition: Acute Care Hospital Transfer Transfer To: [facility] Reason For Transfer: syncope, EP consult Accepting Physician: Jihan Time Discussed w/Accepting Physician: 11:53 Condition: (2) Stable Forms: Patient Portal Access Time of Disposition: 11:53 Quality - Quality Measures Quality Measures: N/A - Blood Pressure Screening View Details: Yes Does Patient Have Any of the Following: No Blood Pressure Classification: Pre-Hypertensive BP Reading Systolic Measurement: 202 Diastolic Measurement: 83 Screening for High Blood Pressure: < Pre-Hypertensive BP, F/U Documented > [ [id number]] Pre-Hypertensive Follow-up Interventions: Referral to alternative/primary care provider.
[2017-01-24 10:54] LABS: HEMATOCRIT 47.4 % (35.0-47.0); MEAN CELL VOLUME 71.4 fl (81-97); MEAN CORPUSCULAR HGB CONC 29.5 g/dl (32-36); MEAN PLATELET VOLUME 9.9 fl (7.4-10.4); PLATELET COUNT 533 K/uL (130-400); RED BLOOD COUNT 6.64 M/uL (3.80-5.40); RED CELL DISTRIBUTION WIDTH 22.4 % (11.5-14.5); WHITE BLOOD COUNT W/O DIFF 11.7 K/uL (4.2-12.2)
[2017-01-24 10:57] LABS: URINE APPEARANCE CLEAR; URINE BILIRUBIN NEGATIVE (NEGATIVE); URINE BLOOD SMALL (NEGATIVE); URINE COLOR YELLOW; URINE KETONE NEGATIVE (NEGATIVE); URINE LEUKOCYTE ESTERASE NEGATIVE (NEGATIVE); URINE NITRITE NEGATIVE (NEGATIVE); URINE UROBILINOGEN 0.2 E.U./dL (0.20 - 1.00)
[2017-01-24 11:03] LABS: URINE EPITHELIAL CELLS 0 - 2 (FEW); URINE WBC NONE SEEN (0-2/hpf)
[2017-01-24 11:22] LABS: PLATELET ESTIMATE INCREASED (NORMAL)
[2017-01-24 11:25] LABS: ALB/GLOB RATIO 1.3 (1.1-1.8); ALKALINE PHOSPHATASE 106 U/L (38-126); ALT/SGPT 43 U/L (9-52); ANION GAP 5.2 (7-16); AST/SGOT 21 U/L (14-36); BILIRUBIN,TOTAL 1.07 mg/dL (0.2-1.3); BLOOD UREA NITROGEN 23 mg/dL (7-17); CARBON DIOXIDE 29.8 mmol/L (22-30); CREATININE 0.8 mg/dL (0.52-1.04); EST GLOMERULAR FILTRATION RATE > 60 ml/min; GLUCOSE,RANDOM 219 mg/dL (70-110)
[2017-01-24 12:06] LABS: TROPONIN I < 0.012 ng/mL (0.00-0.034)
[2017-01-24] MEDS: NOVOLOG FLEXPEN (INSULIN ASPART) 100 UNITS/ML SQ ONE (13:10)
[2017-01-24] MEDS: MAGNESIUM SULFATE 16 MEQ in 0.9 % SODIUM CHLORIDE 100ML 100 ML IV ONE (14:31)
--- NOTE | 2017-01-26 08:23 | CT SCAN REPORT ---
EXAM: CT OF THE BRAIN WITHOUT CONTRAST HISTORY: SEIZURE. TECHNIQUE: Sequential axial images were obtained from the foramen magnum to the vertex without contrast administration. FINDINGS: The brain volume is normal. There is no large territorial infarct, hemorrhage, mass effect, or midline shift. There is no extraaxial fluid collection. The orbits, paranasal sinuses, and mastoid air cells are normal. IMPRESSION: NO ACUTE INTRACRANIAL ABNORMALITY IS APPRECIATED. JOB NUMBER: [id number] MTDD
== END 2017-01-24 15:00 | disposition short-term general hospital (02) ==
LOC: ER 10:14
DX: R55 Syncope and collapse (principal); I27.2 Other secondary pulmonary hypertension; E11.9 Type 2 diabetes mellitus without complications; Z79.4 Long term (current) use of insulin
CPT/HCPCS: 99285 ×2; 96372; 96365; 83735; 84484; 80053; 36416; 81001; 82948; 85027; 70450; 93005; 93010; J1815

== ENCOUNTER 2017-07-19 14:35 | Observation (INO) | payer MEDICARE, BC ==
--- NOTE | 2017-07-19 15:17 | Emergency Department Record ---
History of Present Illness - General Chief complaint: Female Urogenital Problem Stated complaint: IV ANTIBIOTICS Time Seen by Provider: 07/19/17 15:09 Source: Patient, RN notes reviewed Mode of Arrival: Ambulatory - History of Present Illness Initial comments: patient was seen by her brush cutter Dr. Sarah Martinez and her sensitivity came back pseudomonas and only sensitive to invanz. Patient became septic in Apr 2017 and required intubation at [facility] from a UTI and Sarah FRIEND wanted IV invanc and a pick line and 10 days of invanz. She would manage outpatient antibiotics once it is in place. Patient was on levaquin outpatient but only intermediate sensitivity. Patient failed out patient therapy and she is nauseated. MD Complaint: Dysuria Onset/Timin -: Month(s) Improves with: None Worsens with: None Associated Symptoms: Abdominal pain - Related Data Home Medications Medication Instructions Recorded Confirmed Last Taken Apixaban [Eliquis] 5 mg PO BID 07/19/17 07/19/17 07/19/17 Allergies Allergy/AdvReac Type Severity Reaction Status Date / Time aspirin AdvReac NAUSEA Verified 07/19/17 15:06 celecoxib [From Celebrex] AdvReac NAUSEA AND Verified 07/19/17 15:06 VOMITING fentanyl AdvReac NAUSEA AND Verified 07/19/17 15:06 VOMITING hydrocodone bitartrate AdvReac NAUSEA AND Verified 07/19/17 15:06 [From Vicodin] VOMITING NSAIDS (Non-Steroidal AdvReac NAUSEA AND Verified 07/19/17 15:06 Anti-Inflamma VOMITING sulfamethoxazole AdvReac caused a Verified 07/19/17 15:06 [From Bactrim] kamran trimethoprim [From Bactrim] AdvReac caused a Verified 07/19/17 15:06 kamran Travel Screening - Travel/Exposure Within Last 30 Days Have you traveled within the last 30 days?: No - Travel/Exposure Within Last Year Have you traveled outside the [place] in the last year?: No - Additonal Travel Details Have you been exposed to anyone with a communicable illness?: No - Travel Symptoms Symptom Screening: None Review of Systems Reviewed: No additional complaints except as noted below Constitutional: Reports: As per HPI. Denies: Chills, Fever, Malaise, Night sweats, Weakness, Weight change Eyes: Reports: As per HPI. Denies: Eye discharge, Eye pain, Photophobia, Vision change ENT: Reports: As per HPI. Denies: Congestion, Dental pain, Ear pain, Epistaxis , Hearing loss, Throat pain Respiratory: Reports: As per HPI. Denies: Cough, Dyspnea, Hemoptysis, Stridor, Wheezes Cardiovascular: Reports: As per HPI. Denies: Arrhythmia, Chest pain, Dyspnea on exertion, Edema, Murmurs, Orthopnea, Palpitations, Paroxysmal nocturnal dyspnea, Rheumatic Fever, Syncope Endocrine: Reports: As per HPI. Denies: Fatigue, Heat or cold intolerance, Polydipsia, Polyuria Gastrointestinal: Reports: As per HPI, Nausea. Denies: Abdominal pain, Constipation, Diarrhea, Hematemesis, Hematochezia, Melena, Vomiting Genitourinary: Reports: As per HPI. Denies: Abnormal menses, Discharge, Dyspareunia, Dysuria, Frequency, Hematuria, Incontinence, Retention, Urgency Musculoskeletal: Reports: As per HPI. Denies: Arthralgia, Back pain, Gout, Joint swelling, Myalgia, Neck pain Skin: Reports: As per HPI. Denies: Bruising, Change in color, Change in hair/ nails, Lesions, Pruritus, Rash Neurological: Reports: As per HPI. Denies: Abnormal gait, Confusion, Headache, Numbness, Paresthesias, Seizure, Tingling, Tremors, Vertigo, Weakness Psychiatric: Reports: As per HPI. Denies: Anxiety, Auditory hallucinations, Depression, Homicidal thoughts, Suicidal thoughts, Visual hallucinations Hematological/Lymphatic: Reports: As per HPI. 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 - GI Hx GI Disorders: Yes Comment:: fluxuates between diarrhea and constipation - Hx Genitourinary Disorders: No Comment:: incontinence - ENDOCRINE Hx Endocrine Disorders: Yes Hx Diabetes: Yes Hx Thyroid Disease: Yes - MUSCULOSKELETAL Hx Musculoskeletal Disorders: Yes Hx Arthritis: Yes Hx Fibromyalgia: Yes - PSYCH Hx Psych Problems: No - HEMATOLOGY/ONCOLOGY Hx Hematology/Oncology Disorders: Yes Comment:: polycythemia Family Medical History Any Significant Family History?: No Hx Stroke: Mother Physical Exam - General General Appearance: Alert, Oriented x3, Cooperative, No acute distress - Head Head exam: Normal inspection - Eye Eye exam: Normal appearance, PERRL Pupils: Normal accommodation - ENT ENT exam: Normal exam, Mucous membranes moist, Normal external ear exam, Normal orophraynx, TM's normal bilaterally Ear exam: Normal external inspection. negative: External canal tenderness Nasal Exam: Normal inspection. negative: Discharge, Sinus tenderness Mouth exam: Normal external inspection, Tongue normal Teeth exam: Normal inspection. negative: Dental caries Throat exam: Normal inspection. negative: Tonsillar erythema, Tonsillar exudate - Neck Neck exam: Normal inspection, Full ROM. negative: Tenderness - Respiratory Respiratory exam: Normal lung sounds bilaterally. negative: Respiratory distress - Cardiovascular Cardiovascular Exam: Regular rate, Normal rhythm, Normal heart sounds - GI/Abdominal GI/Abdominal exam: Soft, Normal bowel sounds. negative: Tenderness - Rectal Rectal exam: Deferred - exam: Deferred - Extremities Extremities exam: Normal inspection, Full ROM, Normal capillary refill. negative: Tenderness - Back Back exam: Reports: Normal inspection, Full ROM. Denies: Muscle spasm, Rash noted, Tenderness - Neurological Neurological exam: Alert, Normal gait, Oriented X3, Reflexes normal - Psychiatric Psychiatric exam: Normal affect, Normal mood - Skin Skin exam: Dry, Intact, Normal color, Warm Medical Decision Making - Lab Data Result diagrams: 07/19/17 15:37 07/19/17 15:37 Disposition Clinical Impression: UTI (urinary tract infection) Qualifiers: Urinary tract infection type: acute cystitis Hematuria presence: without hematuria Qualified Code(s): N30.00 - Acute cystitis without hematuria Decision to Admit: Admit from ER Condition: (1) Good Forms: Patient Portal Access Time of Disposition: 16:06 Quality - Quality Measures Quality Measures: N/A - Blood Pressure Screening Does Patient Have Any of the Following: No, Active Dx of HTN Blood Pressure Classification: Hypertensive Reading Systolic Measurement: 174 Diastolic Measurement: 67 Screening for High Blood Pressure: Patient Exclusion, Hx of HTN [G9744]
[2017-07-19 15:46] LABS: HEMATOCRIT 38.8 % (35.0-47.0); MEAN CELL VOLUME 76.4 fl (81-97); MEAN CORPUSCULAR HGB CONC 28.4 g/dl (32-36); MEAN PLATELET VOLUME 10.3 fl (7.4-10.4); PLATELET COUNT 522 K/uL (130-400); RED BLOOD COUNT 5.08 M/uL (3.80-5.40); RED CELL DISTRIBUTION WIDTH 22.6 % (11.5-14.5); WHITE BLOOD COUNT W/O DIFF 10.7 K/uL (4.2-12.2)
[2017-07-19 15:46] LABS: URINE APPEARANCE CLEAR; URINE BILIRUBIN NEGATIVE (NEGATIVE); URINE BLOOD SMALL (NEGATIVE); URINE COLOR YELLOW; URINE GLUCOSE (UA) NEGATIVE (NEGATIVE); URINE KETONE NEGATIVE (NEGATIVE); URINE LEUKOCYTE ESTERASE TRACE (NEGATIVE); URINE NITRITE POSITIVE (NEGATIVE); URINE UROBILINOGEN 0.2 E.U./dL (0.20 - 1.00)
[2017-07-19 15:50] LABS: MEAN CORPUSCULAR HEMOGLOBIN 21.6 pg (27-33)
[2017-07-19 15:57] LABS: CREATININE 1.2 mg/dL (0.5-0.9)
[2017-07-19 15:59] LABS: URINE EPITHELIAL CELLS 0 - 2 (FEW)
[2017-07-19] MEDS ORDERED: ERTAPENEM SODIUM 1 G in 0.9 % SODIUM CHLORIDE 100ML 100 ML IVPB ONE (16:03)
[2017-07-19 16:05] LABS: ANISOCYTOSIS 1+; HYPOCHROMIA 1+; PLATELET ESTIMATE NORMAL (NORMAL)
[2017-07-19] MEDS ORDERED: ACETAMINOPHEN 500 MG TABLET PO PRN (17:10)
[2017-07-19] MEDS ORDERED: ERTAPENEM SODIUM 1 G in 0.9 % SODIUM CHLORIDE 100ML 100 ML IVPB SCH (17:10)
[2017-07-19] MEDS ORDERED: AL HYDROX/MAG HYDROX 30ML UD PO PRN (17:10)
[2017-07-19] MEDS ORDERED: NOVOLOG FLEXPEN (INSULIN ASPART) 100 UNITS/ML SQ SCH (17:15)
[2017-07-19] MEDS ORDERED: LATANOPROST 0.005% OPTH SOLUTION 2.5ML BOTTLE OPTH SCH (22:00)
[2017-07-19] MEDS ORDERED: PIOGLITAZONE HCL 15 MG TABLET PO SCH (22:00)
[2017-07-19] MEDS ORDERED: LEVEMIR FLEXTOUCH 100 UNIT/ML INSULIN PEN SQ SCH (22:00)
[2017-07-19] MEDS ORDERED: ROPINIROLE HCL 0.25 MG PO SCH (22:00)
[2017-07-19] MEDS ORDERED: SIMVASTATIN 20 MG TABLET PO SCH (22:00)
[2017-07-19] MEDS ORDERED: PATIENT OWN MED: MC SCH ×3 (23:00→23:45)
[2017-07-19] MEDS: APIXABAN 5MG TABLET PO SCH (23:06)
[2017-07-19] MEDS: BETAXOLOL HCL OPTH SCH (23:06)
[2017-07-19] MEDS: METOPROLOL TART 50 MG TABLET PO SCH (23:07)
[2017-07-19] MEDS: ROPINIROLE HCL 1 MG TABLET PO SCH (23:08)
[2017-07-19] MEDS: GABAPENTIN 300 MG CAPSULE PO SCH (23:08)
[2017-07-19] MEDS ORDERED: INSULIN GLARGINE MC SCH (23:45)
[2017-07-20 06:41] LABS: HEMATOCRIT 35.2 % (35.0-47.0); HEMOGLOBIN 10.2 gm/dl (11.6-16.0); MEAN CELL VOLUME 75.9 fl (81-97); PLATELET COUNT 468 K/uL (130-400); RED BLOOD COUNT 4.64 M/uL (3.80-5.40); RED CELL DISTRIBUTION WIDTH 21.9 % (11.5-14.5); WHITE BLOOD COUNT W/O DIFF 9.7 K/uL (4.2-12.2)
[2017-07-20] MEDS ORDERED: LEVOTHYROXINE SODIUM 150 MCG TABLET PO SCH (07:00)
[2017-07-20 07:01] LABS: MEAN CORPUSCULAR HEMOGLOBIN 21.9 pg (27-33)
--- NOTE | 2017-07-20 07:40 | History & Physical ---
History of Present Illness - Date of Service Date of Service for History & Physical: 07/20/17 - History of Present Illness Admitting Diagnosis: UTI failed outpatient therapy History of Present Illness: 71yo female with CC of UTI. Patient has history of pulmonary HTN, RANJANA with CPAPC use, T2DM, hypothyroidism, asthma, [place], Afib, pacemaker, urinary incontinence, fibromyalgia, depression and anxiety. Patient presented to the ED yesterday as instructed by her personnel monitor, Dr. Martinez, at [facility]. She has had history of frequent UTI's and antibiotic resistance. She was found to have another UTI, culture came back showing pseudomonas and patient's personnel monitor wanted her admitted for administration of IV abx with her history of becoming septic from a similar infection. While in the ED, UA was repeated and was positive for LE, culture was repeated. WBC count was normal and patient was afebrile. Her renal function was at baseline, stage 3, with BUN of 36 and Cr of 1.2. She was given 1gm of invanz in the ED and admitted for further monitoring and discharge planning. 07/20/17- Patient states she is feeling ok today. Didn't sleep much with uncomfortable bed and having PICC placed so late. She denies any further nausea , no fevers, chills. She denies any weakness or difficulty ambulating from baseline. Her is at bedside and would like to try and have her set up for outpatient abx infusion. nephrology: Dr. Martinez Travel Screening - Travel/Exposure Within Last 30 Days Have you traveled within the last 30 days?: No - Travel/Exposure Within Last Year Have you traveled outside the [place] in the last year?: No - Additonal Travel Details Have you been exposed to anyone with a communicable illness?: No - Travel Symptoms Symptom Screening: None Review of Systems Constitutional: Reports: As per HPI. Denies: Chills, Fever, Malaise, Night sweats, Weakness, Weight change Eyes: Reports: As per HPI. Denies: Eye discharge, Eye pain, Photophobia, Vision change ENT: Reports: As per HPI. Denies: Congestion, Dental pain, Ear pain, Epistaxis , Hearing loss, Throat pain Respiratory: Reports: As per HPI. Denies: Cough, Dyspnea, Hemoptysis, Stridor, Wheezes Cardiovascular: Reports: As per HPI. Denies: Arrhythmia, Chest pain, Dyspnea on exertion, Edema, Murmurs, Orthopnea, Palpitations, Paroxysmal nocturnal dyspnea, Rheumatic Fever, Syncope Endocrine: Reports: As per HPI. Denies: Fatigue, Heat or cold intolerance, Polydipsia, Polyuria Gastrointestinal: Reports: As per HPI. Denies: Abdominal pain, Constipation, Diarrhea, Hematemesis, Hematochezia, Melena, Vomiting Genitourinary: Reports: As per HPI. Denies: Abnormal menses, Discharge, Dyspareunia, Dysuria, Frequency, Hematuria, Incontinence, Retention, Urgency Musculoskeletal: Reports: As per HPI. Denies: Arthralgia, Back pain, Gout, Joint swelling, Myalgia, Neck pain Skin: Reports: As per HPI. Denies: Bruising, Change in color, Change in hair/ nails, Lesions, Pruritus, Rash Neurological: Reports: As per HPI. Denies: Abnormal gait, Confusion, Headache, Numbness, Paresthesias, Seizure, Tingling, Tremors, Vertigo, Weakness Psychiatric: Reports: As per HPI. Denies: Anxiety, Auditory hallucinations, Depression, Homicidal thoughts, Suicidal thoughts, Visual hallucinations Hematological/Lymphatic: Reports: As per HPI. Denies: Anemia, Blood Clots, Easy bleeding, Easy bruising, Swollen glands Past Medical History - SOCIAL HISTORY Smoking Status: Never smoker Alcohol Use: None Drug Use: None - RESPIRATORY Hx Respiratory Disorders: Yes Hx Asthma: Yes Hx Bronchitis: No Hx COPD: No Hx Dyspnea: No Hx Pneumonia: No Hx Pulmonary Embolism: No Hx Sleep Apnea: Yes Hx of CPAP: Yes Comment:: pulmonary hypertension, 2L of O2 when laying down or at night - CARDIOVASCULAR Hx Cardio Disorders: Yes Hx Abnormal EKG: Yes Hx Cardiac Cath: Yes Hx Chest Pain: No Hx CHF: No Hx Deep Vein Thrombosis: No Hx Edema: No Hx Heart Attack: Yes Hx Hypertension: Yes (pulmonary) Hx Hypotension: No Hx Irregular Heartbeat: No Hx Palpitations: No Hx Pacemaker/Defib: Yes Hx Vascular Disease: No Comment:: hx of afib - NEURO Hx Neuro Disorders: Yes Hx Brain Tumor: No Hx CVA: No Hx Dementia: No Hx Dizziness: No Hx Headaches: No Hx Neuropathy: No Hx Parkinson's Disease: No Hx Seizures: No Hx Speech Problem: No Hx TIA: No Comment:: visual auras for about 10 years - GI Hx GI Disorders: Yes Hx Abdominal Pain: No Hx Celiac Disease: No Hx Crohn's Disease: No Hx Diverticulitis: No Hx GI Bleed: No Hx Reflux: No Hx Hepatitis/Jaundice: No Hx Hiatal Hernia: No Hx Irritable Bowel: No Hx Liver Disease: No Hx Nausea/Vomiting: No Hx Obstructive Bowel: No Hx Pancreatitis: No Hx Rectal Bleeding: No Hx Ulcer: No Hx Wt Loss/Wt Gain: No Hx of Polyps: No Comment:: fluxuates between diarrhea and constipation - Hx Genitourinary Disorders: No Comment:: incontinence - ENDOCRINE Hx Endocrine Disorders: Yes Hx Diabetes: Yes Hx Thyroid Disease: Yes - MUSCULOSKELETAL Hx Musculoskeletal Disorders: Yes Hx Arthritis: Yes Hx Back Injury: No Hx Fibromyalgia: Yes Hx Gout: No Hx Musculoskeletal Disease: No Hx Osteoporosis: No - PSYCH Hx Psych Problems: Yes Hx Anxiety: Yes Hx Behavior Problems: No Hx Depression: Yes Hx Emotional Abuse: No Hx Sexual Abuse: No Hx Suicide Attempt: No Major Depressive Episode: No Feelings of Hopelessness: Yes Comment:: has no thoughts of committing suicide. - HEMATOLOGY/ONCOLOGY Hx Hematology/Oncology Disorders: Yes Hx Anemia: Yes Hx Blood Disorders: Yes Hx Bruising: Yes Hx Cancer: Yes (basal cell carcinoma) Hx Chemotherapy: No Hx Radiation Therapy: No Hx Clotting Problems: No Hx Sickle Cell Disease: No Hx Unexplained Bleeding: No Hx Blood Transfusions: No Hx Blood Transfusion Reaction: No Comment:: polycythemia Family Medical History Any Significant Family History?: No Hx Stroke: Mother H&P Meds/Allergies - Allergies Allergies: Allergies Allergy/AdvReac Type Severity Reaction Status Date / Time aspirin AdvReac NAUSEA Verified 07/19/17 15:06 celecoxib [From Celebrex] AdvReac NAUSEA AND Verified 07/19/17 15:06 VOMITING fentanyl AdvReac NAUSEA AND Verified 07/19/17 15:06 VOMITING hydrocodone bitartrate AdvReac NAUSEA AND Verified 07/19/17 15:06 [From Vicodin] VOMITING NSAIDS (Non-Steroidal AdvReac NAUSEA AND Verified 07/19/17 15:06 Anti-Inflamma VOMITING sulfamethoxazole AdvReac caused a Verified 07/19/17 15:06 [From Bactrim] kamran trimethoprim [From Bactrim] AdvReac caused a Verified 07/19/17 15:06 kamran - Home Medications Home Medications Medication Instructions Recorded Confirmed Last Taken Apixaban [Eliquis] 5 mg PO BID 07/19/17 07/19/17 07/19/17 - Active Medications Active Medications: Current Medications Acetaminophen (Tylenol 500mg Tab) 1,000 mg PO Q6H PRN PRN Reason: PAIN/TEMP Al Hydroxide/Mg Hydroxide (Maalox) 30 ml PO Q4H PRN PRN Reason: GI UPSET Apixaban (Eliquis) 5 mg PO BID [facility] Last Admin: 07/19/17 23:06 Dose: 5 mg Gabapentin (Neurontin) 600 mg PO BID [facility] Last Admin: 07/19/17 23:08 Dose: 600 mg Ertapenem 1 g/ Sodium Chloride 100 mls @ 200 mls/hr IVPB Q24H [facility] Last Admin: 07/19/17 18:01 Dose: Not Given Insulin Aspart (Novolog Flexpen) 15 unit SQ TIDINS [facility] Last Admin: 07/19/17 21:45 Dose: Not Given [facility]anop[facility] ([facility]al[facility]) [facility] Last Admin: 07/19/17 23:09 Dose: 1 drop [facility]ine [facility] Last Admin: 07/20/17 06:41 Dose: 150 mcg Losartan Potassium (Losartan Potassium) 100 mg PO DAILY [facility] Metoprolol Tartrate (Lopressor) 50 mg PO BID [facility] Last Admin: 07/19/17 23:07 Dose: 50 mg Non-Formulary Medication (Betaxolol Hcl [Betoptic S]) 1 drop OPTH Q12H [facility] Last Admin: 07/19/17 23:06 Dose: 1 drop Patient Own Med: ([facility]atin 40mg) [facility] Patient Own Med: (Lantus 48 Units Sq) [facility] Pioglitazone HCl (Actos) 15 [facility] PO [facility] Last Admin: 07/19/17 23:04 Dose: 15 mg Ropinirole HCl (Requip) 0.75 mg PO [facility] Last Admin: 07/19/17 23:08 Dose: 0.75 mg Physical Exam - Vital Signs Vital Signs: Vital Signs - Last 24 Hrs Temp Pulse Pulse Resp BP Pulse Ox 07/20/17 06:25 63 18 97 07/20/17 06:00 61 18 132/64 93 L 07/20/17 02:00 97.2 F L 61 18 145/53 99 07/19/17 21:59 97 F L 62 18 168/84 95 07/19/17 21:00 18 07/19/17 18:00 97.7 F 60 18 163/73 95 07/19/17 17:46 16 - General General Appearance: Alert, Oriented x3, Cooperative, No acute distress - Head Head exam: Normal inspection - Eye Eye exam: Normal appearance, PERRL Pupils: Normal accommodation - ENT ENT exam: Normal exam, Mucous membranes moist, Normal external ear exam, Normal orophraynx, TM's normal bilaterally Ear exam: Normal external inspection. negative: External canal tenderness Nasal Exam: Normal inspection. negative: Discharge, Sinus tenderness Mouth exam: Normal external inspection, Tongue normal Teeth exam: Normal inspection. negative: Dental caries Throat exam: Normal inspection. negative: Tonsillar erythema, Tonsillar exudate - Neck Neck exam: Normal inspection, Full ROM. negative: Tenderness - Respiratory Respiratory exam: Normal lung sounds bilaterally. negative: Respiratory distress - Cardiovascular Cardiovascular Exam: Regular rate, Normal rhythm, Systolic murmur - GI/Abdominal GI/Abdominal exam: Soft, Normal bowel sounds. negative: Tenderness - Rectal Rectal exam: Deferred - exam: Deferred - Extremities Extremities exam: Normal inspection, Full ROM, Normal capillary refill. negative: Tenderness - Back Back exam: Reports: Normal inspection, Full ROM. Denies: Muscle spasm, Rash noted, Tenderness - Neurological Neurological exam: Alert, Normal gait, Oriented X3, Reflexes normal - Psychiatric Psychiatric exam: Normal affect, Normal mood - Skin Skin exam: Dry, Intact, Normal color, Warm Results - Labs Result Diagrams: 07/20/17 06:30 07/20/17 06:30 Labs Last 24 Hours: Laboratory Results - last 24 hr 07/20/17 06:30 WBC 9.7 RBC 4.64 Hgb 10.2 L Hct 35.2 MCV 75.9 L MCH 21.9 L MCHC 29.0 L RDW 21.9 H Plt Count 468 H MPV 10.0 Neutrophils % 82.0 H Band Neutrophils % 0.0 Eosinophils % Not Reportable Basophils % Not Reportable Lymphocytes 9.0 L Monocytes 7.0 Basophils 0.0 Eosinophil Count 2.0 VTE H&P Assessment - Risk for VTE Risk for VTE: Yes Risk Level: High Risk Assessment Date: 07/20/17 Risk Assessment Time: 10:01 VTE Orders Placed or Will Be Placed: Yes Plan - Detailed Diagnosis and Plan (1) UTI (urinary tract infection) Current Visit: Yes Status: Acute Qualifiers: Urinary tract infection type: acute cystitis Hematuria presence: without hematuria Qualified Code(s): N30.00 - Acute cystitis without hematuria Base Code: N39.0 - URINARY TRACT INFECTION, SITE NOT SPECIFIED Comment: 07/20/17 - Urine culture and sensitivty from nephrology obtained. culture shows pseudomonas with very few sensitivities. Invanz not covering for pseudomonas. She will need to go home on either meropenum, tobramycin, gentamicin. her WBC count remains normal and she is still afebrile. -PICC line placed last night and in correct position -SW consulted and is working on setting up either in home abx infusion vs outpatient -pharmacy will determine which abx will be least frequent dosing -plan to discharge home once abx coverage has been set up (2) Full code status Current Visit: No Status: Acute Base Code: Z78.9 - OTHER SPECIFIED HEALTH STATUS Comment: 07/20/17- patient is full code (3) DVT prophylaxis Current Visit: Yes Status: Acute Base Code: [id number] - Comment: 07/20/17- patient is high risk with h/o afib. -continue home eliquis 5mg po bid
[2017-07-20 07:47] LABS: ALB/GLOB RATIO 1.1 (1.1-1.8); ALBUMIN 3.4 g/dL (4.0-5.0); BILIRUBIN,TOTAL 0.6 mg/dL (0.2-1.0); TOTAL PROTEIN 6.6 g/dL (6.6-8.7)
[2017-07-20] MEDS: HUMALOG SC SCH ×2 (08:48→12:54)
[2017-07-20] MEDS ORDERED: LOSARTAN POTASSIUM 100 MG TABLET PO SCH (10:00)
[2017-07-20] MEDS: BETAXOLOL HCL OPTH SCH (10:02)
[2017-07-20] MEDS: APIXABAN 5MG TABLET PO SCH (10:06)
[2017-07-20] MEDS: METOPROLOL TART 50 MG TABLET PO SCH (10:07)
[2017-07-20] MEDS: GABAPENTIN 300 MG CAPSULE PO SCH (10:08)
[2017-07-20] MEDS: ROPINIROLE HCL 1 MG TABLET PO SCH (11:15)
[2017-07-20] MEDS ORDERED: GENTAMICIN SULFATE 560 MG in 0.9 % SODIUM CHLORIDE 100ML 100 ML IV ONE (11:30)
--- NOTE | 2017-07-20 11:30 | Discharge Summary ---
Providers Discharge Summary Date: 07/20/17 Date of admission: 07/19/17 17:01 Expected Date of Discharge: 07/20/17 Attending physician: ALBERTO NAPOLES Primary care physician: NIECY DUGAN D.O. Physical Exam - Vital Signs Vital Signs: Vital Signs - Last 24 Hrs Temp Pulse Pulse Resp BP Pulse Ox 07/20/17 06:25 63 18 97 07/20/17 06:00 61 18 132/64 93 L 07/20/17 02:00 97.2 F L 61 18 145/53 99 07/19/17 21:59 97 F L 62 18 168/84 95 07/19/17 21:00 18 07/19/17 18:00 97.7 F 60 18 163/73 95 07/19/17 17:46 16 - General General Appearance: Alert, Oriented x3, Cooperative, No acute distress - Head Head exam: Normal inspection - Eye Eye exam: Normal appearance, PERRL Pupils: Normal accommodation - ENT ENT exam: Normal exam, Mucous membranes moist, Normal external ear exam, Normal orophraynx, TM's normal bilaterally Ear exam: Normal external inspection. negative: External canal tenderness Nasal Exam: Normal inspection. negative: Discharge, Sinus tenderness Mouth exam: Normal external inspection, Tongue normal Teeth exam: Normal inspection. negative: Dental caries Throat exam: Normal inspection. negative: Tonsillar erythema, Tonsillar exudate - Neck Neck exam: Normal inspection, Full ROM. negative: Tenderness - Respiratory Respiratory exam: Normal lung sounds bilaterally. negative: Respiratory distress - Cardiovascular Cardiovascular Exam: Regular rate, Normal rhythm, Systolic murmur - GI/Abdominal GI/Abdominal exam: Soft, Normal bowel sounds. negative: Tenderness - Rectal Rectal exam: Deferred - exam: Deferred - Extremities Extremities exam: Normal inspection, Full ROM, Normal capillary refill. negative: Tenderness - Back Back exam: Reports: Normal inspection, Full ROM. Denies: Muscle spasm, Rash noted, Tenderness - Neurological Neurological exam: Alert, Normal gait, Oriented X3, Reflexes normal - Psychiatric Psychiatric exam: Normal affect, Normal mood - Skin Skin exam: Dry, Intact, Normal color, Warm Hospitalization - Hospitalization Admission Diagnosis: UTI failed outpatient therapy - Problem List/Discharge Diagnosis (1) UTI (urinary tract infection) Current Visit: Yes Status: Acute Discharge Diagnosis: Urinary tract infection type: acute cystitis Hematuria presence: without hematuria Qualified Code(s): N30.00 - Acute cystitis without hematuria Base Code: N39.0 - URINARY TRACT INFECTION, SITE NOT SPECIFIED Comment: 07/20/17 - Urine culture and sensitivty from nephrology obtained. culture shows pseudomonas with very few sensitivities. Discussed with Dr. Martinez. Pharmacy is recommending gentamicin due to dosing being once daily so she doesn't have to come to the hospital several times daily. Dr. Martinez was ok with the recommended dose of 560mg and pharmacy will monitor her renal function. -PICC line placed last night and in correct position -She will receive first dose of gent today prior to discharge -She will return this evening for redraw of labs -pharmacy will continue to monitor renal function with daily lab work -we will obtain BMP/CBC on Monday the and forward results to Dr. Martinez -patient will follow up wtih Dr. Martinez as outpatient. (2) Full code status Current Visit: No Status: Acute Base Code: Z78.9 - OTHER SPECIFIED HEALTH STATUS Comment: 07/20/17- patient is full code (3) DVT prophylaxis Current Visit: Yes Status: Acute Base Code: [id number] - Comment: 07/20/17- patient is high risk with h/o afib. -continue home eliquis 5mg po bid - Hospitalization Course Disposition: Home, Self-Care Hospital Course: 71yo female with CC of UTI. Patient has history of pulmonary HTN, RANJANA with CPAPC use, T2DM, hypothyroidism, asthma, [place], Afib, pacemaker, urinary incontinence, fibromyalgia, depression and anxiety. Patient presented to the ED yesterday as instructed by her equip maint eng, Dr. Martinez, at [facility]. She has had history of frequent UTI's and antibiotic resistance. She was found to have another UTI, culture came back showing pseudomonas and patient's equip maint eng wanted her admitted for administration of IV abx with her history of becoming septic from a similar infection. While in the ED, UA was repeated and was positive for LE, culture was repeated. WBC count was normal and patient was afebrile. Her renal function was at baseline, stage 3, with BUN of 36 and Cr of 1.2. She was given 1gm of invanz in the ED and admitted for further monitoring and discharge planning. 07/20/17- Patient states she is feeling ok today. Didn't sleep much with uncomfortable bed and having PICC placed so late. She denies any further nausea , no fevers, chills. She denies any weakness or difficulty ambulating from baseline. Her is at bedside and would like to try and have her set up for outpatient abx infusion. nephrology: Dr. Martinez Procedures: Imaging and X-Rays 07/20/17 02:37 CHEST 1 VIEW [RAD] Stat Abnormal Labs: Abnormal Lab Results 07/20/17 07/20/17 07/20/17 Range/Units 06:30 06:30 08:00 Hgb 10.2 L (11.6-16.0) gm/dl MCV 75.9 L (81-97) fl MCH 21.9 L (27-33) pg MCHC 29.0 L (32-36) g/dl RDW 21.9 H (11.5-14.5) % Plt Count 468 H (130-400) K/uL Neutrophils % 82.0 H (47-80) % Lymphocytes 9.0 L (16-45) % BUN 32 H (8-23) mg/dL Creatinine 1.0 H (0.5-0.9) mg/dL POC Glucose 115 H (70-110) mg/dL Random Glucose 124 H (74-109) mg/dL Albumin 3.4 L (4.0-5.0) g/dL Condition at Discharge: (2) Stable Discharge Medications - Discharge Medications Home Medications: Ambulatory Orders Betaxolol HCl [Betoptic S] 1 drop OPTH Q12H 07/25/14 [Last Taken 07/18/17] Gabapentin [Neurontin] 800 mg PO 1600 07/25/14 [Last Taken 07/18/17] Insulin Glargine,Hum.rec.anlog [Lantus] 53 unit SQ QHS 07/25/14 [Last Taken 11/27] Insulin Lispro [Humalog] 15 unit SQ BIDINS 07/25/14 [Last Taken 07/19/17] Latanoprost [Xalatan] 1 drop OPTH QHS 07/25/14 [Last Taken 07/18/17] Levothyroxine Sodium [Unithroid] 150 mcg PO DAILYTHY 07/25/14 [Last Taken ] Pioglitazone HCl [Actos] 15 mg PO QHS 07/25/14 [Last Taken 07/18/17] Pravastatin Sodium [Pravachol] 40 mg PO QHS 07/25/14 [Last Taken 07/18/17] Ropinirole HCl [Requip] 0.5 mg PO 0030 07/25/14 [Last Taken 07/18/17] Bumetanide [Bumex] 0.5 mg PO ASDIR PRN 05/06/16 [Last Taken 07/18/17] Losartan Potassium [Cozaar] 100 mg PO DAILY 05/06/16 [Last Taken 07/19/17] Acetaminophen [Tylenol Arthritis] 1,300 mg PO BID 01/19/17 [Last Taken 07/18/17] Cholecalciferol (Vitamin D3) [Vitamin D3] 3,000 unit PO DAILY 01/19/17 [Last Taken 07/19/17] Clobetasol Propionate/Emoll [Clobetasol Emollient 0.05% Crm] 15 gm TP BID [Last Taken 07/18/17] Ropinirole HCl [Requip] 0.25 mg PO 1900 01/19/17 [Last Taken 07/19/17] Lopressor 50 mg PO BID tab 06/13/17 [Last Taken 07/19/17] Apixaban [Eliquis] 5 mg PO BID 07/19/17 [Last Taken 07/19/17] Discharge Plan - Discharge Instructions Activity at Discharge: Resume Usual Activities As Tolerated Diet at Discharge: Diabetic Diet Additional Instructions: Follow up with Dr. Martinez as scheduled. Continue outpatient antibiotic infusion daily here at [facility]. Please call with any questions or concerns Quality Measures - Quality Measures Quality Measures: Advance Directives, Documentation of Current Medications in Medical Record, Elder Maltreatment Screen and Follow-Up Plan, Screening for High Blood Pressure and F/U Documented - Current Medications Quality Measure: Measure #130: Documentation of Current Medications Documentation of Current Medications: <Current Medications Documented/Reviewed> [G8427] - Blood Pressure Screening Quality Measure: Screening for High Blood Pressure and Follow-Up Documented Does Patient Have Any of the Following: Active Dx of HTN Blood Pressure Classification: Pre-Hypertensive BP Reading Systolic Measurement: 132 Diastolic Measurement: 64 Screening for High Blood Pressure: Patient Exclusion, Hx of HTN [G9744] - Advance Directives Quality Measure: Measure #47: Care Plan Advance Directives Established: No Advance Directives Information Provided To Patient: No Advance Directives on File: No Living Will: No Power of Lean Coach: No Advance Care Planning: <Care Plan/Decision Maker Not Decided; Discussed & Documented> [5344F] - Elder Abuse Suspicion Index Screening: Elder Abuse Suspicion Index Screening Rely on people for bathing, dressing, shopping, banking, etc: Yes Prevented from getting food, clothes, medication, etc: No Made to feel shamed or threatened by someone: No Forced to sign papers or use money against will: No Feel afraid, touched in ways not wanted or hurt physically: No Poor eye contact, withdrawn, malnourished, cuts or bruises: No Screening Result: Negative result EASI Reference Information: Kevin KLEIN, Sam C, Marga D, Sarahy Gerber.Development and validation of a tool to assist physicians identification of elder abuse: The Elder Abuse Suspicion Index (EASI ). Journal of Elder Abuse and Neglect, 2008; 20 (3): 276-300. - Elder Maltreatment Screen Quality Measures: Elder Maltreatment Screen and Follow-Up Plan Elder Maltreatment Screen: <Negative, No Follow-Up Plan Required> [G8734]
[2017-07-20] MEDS ORDERED: HEPARIN SODIUM FLUSH 100 UNITS/ML SYR 5ML IVP ONE (14:22)
--- NOTE | 2017-07-20 15:12 | RADIOLOGY REPORT ---
EXAM: CHEST, SINGLE VIEW HISTORY: PICC LINE PLACEMENT. TECHNIQUE: A single AP semi-upright portable view of the chest was obtained. Comparison: None. FINDINGS: There is a dual lead left sided pacemaker in place. A right sided PICC line has also been placed. The PICC is partially obscured by the overlying thoracic spine, but probably terminates in the region of the mid SVC. Cardiomegaly. Mild prominence of the pulmonary vascularity at least in part related to the non-fully upright positioning. Blunting of the left lateral costophrenic angle by fluid or thickened pleura. No pneumothorax evident. Spurring in the spine with a thoracic curve to the right. Degenerative change in the shoulders as well. IMPRESSION: 1. PICC LINE PLACED WITH THE TIP IN THE REGION OF THE MID SVC. 2. CARDIOMEGALY WITH MILD PROMINENCE OF THE PULMONARY VASCULARITY. 3. BLUNTING OF THE LEFT LATERAL COSTOPHRENIC ANGLE. 4. DEGENERATIVE CHANGES IN THE SPINE AND SHOULDERS. JOB NUMBER: [id number] MTDD
[2017-07-20] MEDS ORDERED: LANTUS MC SCH (22:00)
[2017-07-20] MEDS ORDERED: PATIENT OWN MED: MC SCH ×2 (22:00)
[2017-07-20] MEDS ORDERED: PRAVASTATIN 40 MG MC SCH (22:00)
== END 2017-07-20 15:15 | disposition home or self-care (01) ==
LOC: ER 14:35 → MEDSURG 17:01
PROVIDERS: ADMIT Internal Medicine; ATTEND Internal Medicine
DX: N30.00 Acute cystitis without hematuria (principal); I27.0 Primary pulmonary hypertension; B96.5 Pseudomonas (aeruginosa) (mallei) (pseudomallei) as the cause of diseases classified elsewhere; E11.9 Type 2 diabetes mellitus without complications; Z79.4 Long term (current) use of insulin; Z79.84 Long term (current) use of oral hypoglycemic drugs; G47.33 Obstructive sleep apnea (adult) (pediatric); I48.2 Chronic atrial fibrillation; Z79.01 Long term (current) use of anticoagulants; Z95.0 Presence of cardiac pacemaker; M79.7 Fibromyalgia; E03.9 Hypothyroidism, unspecified
CPT/HCPCS: 36569; 99285 ×2; 96365; 96366; 80048; 80053; 36416 ×2; 81001; 82948 ×2; 85027 ×2; 71045; 94760; G0378 ×2; J1335; J1642; J3490; 99217; 99220; 99223; 99239; J1580

== ENCOUNTER 2017-10-13 22:05 | Emergency (ER) | payer MEDICARE, BC ==
--- NOTE | 2017-10-13 22:17 | Emergency Department Record ---
History of Present Illness - General Chief Complaint: Fall Injury Stated Complaint: FALL Time Seen by Provider: 10/13/17 22:14 Source: Patient, EMS Mode of Arrival: Ambulatory - History of Present Illness Initial Comments: 72 yo female presents after a fall. 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 She lost her balance and fell back and to the right. She hit her right elbow and mildly hit her head. No LOC. She had been on Eliquis but this has been held for 4 days due to a dental procedure. No neck, chest, abdomen or new back pain. She has full ROM of the R elbow. No other new extremity pain. She is in her baseline health. NO bleeding after the tooth extraction. MD Complaint: Fall -: Hour(s) (1) Fall From: Standing When Fall Occurred: Just prior to arrival Fall Witnessed: Yes, by family Place Fall Occurred: Home Loss of Consciousness: None Symptoms Prior to Fall: Other (chronic dizziness) Location: Head, Other (right elbow) Location - Extremities: Right: Elbow Severity: Moderate Quality: Aching Context: Other (chronic dizziness due to gentamycin) - [place]i Coma Scale Eye Response: (4) Open spontaneously Motor Response: (6) Obeys commands Verbal Response: (5) Oriented [place] Total: 15 - Related Data Allergies Allergy/AdvReac Type Severity Reaction Status Date / Time aspirin AdvReac NAUSEA Verified 07/19/17 15:06 celecoxib [From Celebrex] AdvReac NAUSEA AND Verified 07/19/17 15:06 VOMITING fentanyl AdvReac NAUSEA AND Verified 07/19/17 15:06 VOMITING hydrocodone bitartrate AdvReac NAUSEA AND Verified 07/19/17 15:06 [From Vicodin] VOMITING NSAIDS (Non-Steroidal AdvReac NAUSEA AND Verified 07/19/17 15:06 Anti-Inflamma VOMITING sulfamethoxazole AdvReac caused a Verified 07/19/17 15:06 [From Bactrim] kamran trimethoprim [From Bactrim] AdvReac caused a Verified 07/19/17 15:06 kamran Review of Systems Constitutional: Denies: Chills, Fever, Malaise, Weakness Eyes: Denies: Eye discharge ENT: Denies: Congestion, Throat pain Respiratory: Denies: Cough, Dyspnea, Hemoptysis, Stridor, Wheezes Cardiovascular: Denies: Chest pain, Syncope Endocrine: Denies: Fatigue, Polydipsia, Polyuria Gastrointestinal: Denies: Abdominal pain, Diarrhea, Nausea, Vomiting Genitourinary: Denies: Dysuria Musculoskeletal: Reports: Arthralgia, Back pain (chronic), Joint swelling Skin: Denies: Bruising, Other Neurological: Denies: Confusion, Headache, Numbness, Tremors, Vertigo, Weakness Psychiatric: Denies: Anxiety Hematological/Lymphatic: Denies: Blood Clots, Easy bleeding, Easy bruising, Swollen glands Past Medical History - SOCIAL HISTORY Smoking Status: Never smoker Drug Use: None - RESPIRATORY Hx Respiratory Disorders: Yes Hx Asthma: Yes Hx Bronchitis: No Hx COPD: No Hx Dyspnea: No Hx Pneumonia: No Hx Pulmonary Embolism: No Hx Sleep Apnea: Yes Hx of CPAP: Yes Comment:: pulmonary hypertension, 2L of O2 when laying down or at night - CARDIOVASCULAR Hx Cardio Disorders: Yes Hx Abnormal EKG: Yes Hx Cardiac Cath: Yes Hx Chest Pain: No Hx CHF: No Hx Deep Vein Thrombosis: No Hx Edema: No Hx Heart Attack: Yes Hx Hypertension: Yes (pulmonary) Hx Hypotension: No Hx Irregular Heartbeat: No Hx Palpitations: No Hx Pacemaker/Defib: Yes Hx Vascular Disease: No Comment:: hx of afib - NEURO Hx Neuro Disorders: Yes Hx Brain Tumor: No Hx CVA: No Hx Dementia: No Hx Dizziness: No Hx Headaches: No Hx Neuropathy: No Hx Parkinson's Disease: No Hx Seizures: No Hx Speech Problem: No Hx TIA: No Comment:: visual auras for about 10 years - GI Hx GI Disorders: Yes Hx Abdominal Pain: No Hx Celiac Disease: No Hx Crohn's Disease: No Hx Diverticulitis: No Hx GI Bleed: No Hx Reflux: No Hx Hepatitis/Jaundice: No Hx Hiatal Hernia: No Hx Irritable Bowel: No Hx Liver Disease: No Hx Nausea/Vomiting: No Hx Obstructive Bowel: No Hx Pancreatitis: No Hx Rectal Bleeding: No Hx Ulcer: No Hx Wt Loss/Wt Gain: No Hx of Polyps: No Comment:: fluxuates between diarrhea and constipation - Hx Genitourinary Disorders: No Comment:: incontinence - ENDOCRINE Hx Endocrine Disorders: Yes Hx Diabetes: Yes Hx Thyroid Disease: Yes - MUSCULOSKELETAL Hx Musculoskeletal Disorders: Yes Hx Arthritis: Yes Hx Back Injury: No Hx Fibromyalgia: Yes Hx Gout: No Hx Musculoskeletal Disease: No Hx Osteoporosis: No - PSYCH Hx Psych Problems: Yes Hx Anxiety: Yes Hx Behavior Problems: No Hx Depression: Yes Hx Emotional Abuse: No Hx Sexual Abuse: No Hx Suicide Attempt: No Comment:: has no thoughts of committing suicide. - HEMATOLOGY/ONCOLOGY Hx Hematology/Oncology Disorders: Yes Hx Anemia: Yes Hx Blood Disorders: Yes Hx Bruising: Yes Hx Cancer: Yes (basal cell carcinoma) Hx Chemotherapy: No Hx Radiation Therapy: No Hx Clotting Problems: No Hx Sickle Cell Disease: No Hx Unexplained Bleeding: No Hx Blood Transfusions: No Hx Blood Transfusion Reaction: No Comment:: polycythemia Family Medical History Hx Stroke: Mother Physical Exam - General General Appearance: Alert, Oriented x3, Cooperative, No acute distress Limitations: No limitations - Head Head exam: Normocephalic, Normal inspection. negative: Atraumatic Head exam detail: negative: Abrasion, Contusion, Hematoma - Eye Eye exam: Normal appearance, PERRL. negative: Conjunctival injection, Scleral icterus - ENT ENT exam: Normal exam, Mucous membranes moist Ear exam: Normal external inspection Nasal Exam: Normal inspection Mouth exam: Normal external inspection - Neck Neck exam: Normal inspection - Respiratory Respiratory exam: Normal lung sounds bilaterally. negative: Respiratory distress, Rhonchi, Stridor, Wheezes - Cardiovascular Cardiovascular Exam: Regular rate, Normal rhythm, Normal heart sounds Peripheral Pulses: 2+: Radial (R), Radial (L) - GI/Abdominal GI/Abdominal exam: Soft - Rectal Rectal exam: Deferred - exam: Deferred - Extremities Extremities exam: Other (Laceration). negative: Normal inspection Image of Full Body: 1 - 2cm linear clean laceration to the right elbow - Back Back exam: Reports: Other (She sits up without assist, no bruising, or abrasions ). Denies: CVA tenderness (R), CVA tenderness (L), Paraspinal tenderness, Tenderness, Vertebral tenderness - Neurological Neurological exam: Alert, Oriented X3. negative: Motor sensory deficit - Psychiatric Psychiatric exam: negative: Agitated, Anxious - Skin Skin exam: Other (Right elbow laceration) Course Vital Signs 10/13/17 22:12 Pulse Rate [ 78 Pulse Ox Probe] Respiratory 16 Rate Blood Pressure 182/71 [Left Arm] Pulse Ox 96 - Reevaluation(s) Reevaluation #1: 10/13/17 23:05 Procedure Laceration R elbow 2.5cm Linear Betadine Prep NS copious irrigation Prolene Suture 4-0 3 sutures placed Well tolerated. 10/13/17 23:10 The HCT was negative for acute injury The elbow XR was negative for acute fracture We discussed home care of the sutures and reasons to return to the ED Suture removal in one week Disposition Disposition: Discharge Clinical Impression: Fall Qualifiers: Encounter type: initial encounter Qualified Code(s): W19.XXXA - Unspecified fall, initial encounter Elbow laceration Qualifiers: Encounter type: initial encounter Laterality: right Qualified Code(s): S51.011A - Laceration without foreign body of right elbow, initial encounter Disposition: Home, Self-Care Condition: (1) Good Instructions: Laceration (ED), Fall Prevention for Older Adults (ED) Additional Instructions: Return if you have any new pain, swelling or concerns Use your walker at all times Return or see your doctor in 7 days to have the sutures removed Forms: Patient Portal Access Time of Disposition: 23:10 Quality - Quality Measures Quality Measures: N/A - Blood Pressure Screening Does Patient Have Any of the Following: Active Dx of HTN Blood Pressure Classification: Hypertensive Reading Systolic Measurement: 176 Diastolic Measurement: 61 Screening for High Blood Pressure: Patient Exclusion, Hx of HTN [G9744]
--- NOTE | 2017-10-15 20:43 | RADIOLOGY REPORT ---
EXAM: ELBOW, RIGHT 3 VIEWS HISTORY: PATIENT FELL AND LANDED ON RIGHT ELBOW WITH LACERATION. TECHNIQUE: Three views right elbow. COMPARISON: None. ENCOUNTER: Initial. FINDINGS: Mild degenerative arthritis right elbow. Spur posteriorly at the olecranon as well. Some air in the soft tissues overlying the proximal ulna posteriorly consistent with the history of laceration. No definite acute fracture, dislocation, or joint effusion identified. Some spurring involving the medial epicondyle of the distal humerus as well. IMPRESSION: 1. SOME SPURRING ABOUT THE ELBOW. 2. SOFT TISSUE SWELLING POSTERIORLY WITH SOME AIR IN THE SOFT TISSUES CONSISTENT WITH LACERATION. 3. NO DEFINITE ACUTE FRACTURE OR JOINT EFFUSION IDENTIFIED. JOB NUMBER: [id number] [facility]
--- NOTE | 2017-10-15 20:46 | CT SCAN REPORT ---
EXAM: CT SCAN HEAD WO CONTRAST HISTORY: PATIENT FELL AND HIT BACK OF HEAD. TECHNIQUE: Axial CT scan of the head performed without IV contrast. COMPARISON: Head CT 01/24/17. ENCOUNTER: Initial. FINDINGS: No definite acute intracranial hemorrhage identified. No focal mass effect or midline shift apparent. Mild generalized atrophy as before. No depressed calvarial fracture evident. No acute infarct or intracranial mass lesion seen. IMPRESSION: 1. GENERALIZED ATROPHY. 2. NO ACUTE INTRACRANIAL HEMORRHAGE OR FOCAL MASS EFFECT IDENTIFIED. JOB NUMBER: [id number] [facility]
== END 2017-10-13 23:20 | disposition home or self-care (01) ==
LOC: ER 22:05
DX: S51.011A Laceration without foreign body of right elbow, initial encounter (principal); S09.90XA Unspecified injury of head, initial encounter; R42 Dizziness and giddiness; I27.20 Pulmonary hypertension, unspecified; I48.91 Unspecified atrial fibrillation; I25.2 Old myocardial infarction; Z79.01 Long term (current) use of anticoagulants; W01.10XA Fall on same level from slipping, tripping and stumbling with subsequent striking against unspecified object, initial encounter; Y92.009 Unspecified place in unspecified non-institutional (private) residence as the place of occurrence of the external cause
CPT/HCPCS: 12001; 70450; 99283; 99284

== ENCOUNTER 2017-10-23 13:59 | Emergency (ER) | payer MEDICARE, BC ==
--- NOTE | 2017-10-23 14:31 | Emergency Department Record ---
History of Present Illness - General Chief Complaint: Suture removal Stated Complaint: SUTURE REMOVAL RT ELBOW Time Seen by Provider: 10/23/17 14:30 Source: Patient Mode of arrival: Ambulatory Limitations: No limitations - History of Present Illness MD Complaint: Suture/staple removal -: Week(s) Returns Today for: Staple/stitch removal Symptoms Since Prior Visit: No new symptoms Associated Symptoms: None - Related Data Allergies Allergy/AdvReac Type Severity Reaction Status Date / Time aspirin AdvReac NAUSEA Verified 10/23/17 14:18 celecoxib [From Celebrex] AdvReac NAUSEA AND Verified 10/23/17 14:18 VOMITING fentanyl AdvReac NAUSEA AND Verified 10/23/17 14:18 VOMITING hydrocodone bitartrate AdvReac NAUSEA AND Verified 10/23/17 14:18 [From Vicodin] VOMITING NSAIDS (Non-Steroidal AdvReac NAUSEA AND Verified 10/23/17 14:18 Anti-Inflamma VOMITING sulfamethoxazole AdvReac caused a Verified 10/23/17 14:18 [From Bactrim] kamran trimethoprim [From Bactrim] AdvReac caused a Verified 10/23/17 14:18 kamran Travel Screening - Travel/Exposure Within Last 30 Days Have you traveled within the last 30 days?: No Review of Systems Constitutional: Denies: Chills, Fever Respiratory: Denies: Cough, Dyspnea Cardiovascular: Denies: Chest pain Endocrine: Denies: Fatigue Gastrointestinal: Denies: Nausea, Vomiting Musculoskeletal: Denies: Arthralgia, Back pain, Gout, Joint swelling, Myalgia Skin: Denies: Bruising, Change in color, Rash Neurological: Denies: Headache Psychiatric: Denies: Anxiety Hematological/Lymphatic: Denies: Easy bleeding, Easy bruising Past Medical History - SOCIAL HISTORY Smoking Status: Never smoker Alcohol Use: None Drug Use: None - RESPIRATORY Hx Respiratory Disorders: Yes Hx Asthma: Yes Hx Bronchitis: No Hx COPD: No Hx Dyspnea: No Hx Pneumonia: No Hx Pulmonary Embolism: No Hx Sleep Apnea: Yes Hx of CPAP: Yes Comment:: pulmonary hypertension, 2L of O2 when laying down or at night - CARDIOVASCULAR Hx Cardio Disorders: Yes Hx Abnormal EKG: Yes Hx Cardiac Cath: Yes Hx Chest Pain: No Hx CHF: No Hx Deep Vein Thrombosis: No Hx Edema: No Hx Heart Attack: Yes Hx Hypertension: Yes (pulmonary) Hx Hypotension: No Hx Irregular Heartbeat: No Hx Palpitations: No Hx Pacemaker/Defib: Yes Hx Vascular Disease: No Comment:: hx of afib - NEURO Hx Neuro Disorders: Yes Hx Brain Tumor: No Hx CVA: No Hx Dementia: No Hx Dizziness: No Hx Headaches: No Hx Neuropathy: No Hx Parkinson's Disease: No Hx Seizures: No Hx Speech Problem: No Hx TIA: No Comment:: visual auras for about 10 years - GI Hx GI Disorders: Yes Hx Abdominal Pain: No Hx Celiac Disease: No Hx Crohn's Disease: No Hx Diverticulitis: No Hx GI Bleed: No Hx Reflux: No Hx Hepatitis/Jaundice: No Hx Hiatal Hernia: No Hx Irritable Bowel: No Hx Liver Disease: No Hx Nausea/Vomiting: No Hx Obstructive Bowel: No Hx Pancreatitis: No Hx Rectal Bleeding: No Hx Ulcer: No Hx Wt Loss/Wt Gain: No Hx of Polyps: No Comment:: fluxuates between diarrhea and constipation - Hx Genitourinary Disorders: No Comment:: incontinence - ENDOCRINE Hx Endocrine Disorders: Yes Hx Diabetes: Yes Hx Thyroid Disease: Yes - MUSCULOSKELETAL Hx Musculoskeletal Disorders: Yes Hx Arthritis: Yes Hx Back Injury: No Hx Fibromyalgia: Yes Hx Gout: No Hx Musculoskeletal Disease: No Hx Osteoporosis: No - PSYCH Hx Psych Problems: Yes Hx Anxiety: Yes Hx Behavior Problems: No Hx Depression: Yes Hx Emotional Abuse: No Hx Sexual Abuse: No Hx Suicide Attempt: No Comment:: has no thoughts of committing suicide. - HEMATOLOGY/ONCOLOGY Hx Hematology/Oncology Disorders: Yes Hx Anemia: Yes Hx Blood Disorders: Yes Hx Bruising: Yes Hx Cancer: Yes (basal cell carcinoma) Hx Chemotherapy: No Hx Radiation Therapy: No Hx Clotting Problems: No Hx Sickle Cell Disease: No Hx Unexplained Bleeding: No Hx Blood Transfusions: No Hx Blood Transfusion Reaction: No Comment:: polycythemia Family Medical History Any Significant Family History?: Yes Hx Stroke: Mother Physical Exam - General General Appearance: Alert, Oriented x3, Cooperative, No acute distress Limitations: No limitations - Head Head exam: Atraumatic - Eye Eye exam: Normal appearance - ENT ENT exam: Normal exam - Neck Neck exam: Normal inspection - Rectal Rectal exam: Deferred - exam: Deferred - Extremities Extremities exam: Normal inspection, Full ROM. negative: Tenderness - Back Back exam: Reports: Normal inspection - Neurological Neurological exam: Alert, Oriented X3 - Psychiatric Psychiatric exam: Normal affect, Normal mood - Skin Skin exam: Dry, Intact, Normal color, Warm, Other (Well healed no warmth or redness) Course Vital Signs 10/23/17 14:19 Temperature 97.9 F Pulse Rate 61 Respiratory 18 Rate Blood Pressure 150/72 Pulse Ox 92 L - Reevaluation(s) Reevaluation #1: sutures removed without difficulty 10/24/17 08:17 Disposition Disposition: Discharge Clinical Impression: Visit for suture removal Disposition: Home, Self-Care Condition: (1) Good Instructions: Stitches Removal (ED) Additional Instructions: Return if you have any concerns about the healing of the elbow laceration Forms: Patient Portal Access Time of Disposition: 14:31 Quality - Quality Measures Quality Measures: N/A - Blood Pressure Screening Does Patient Have Any of the Following: Active Dx of HTN Blood Pressure Classification: Hypertensive Reading Systolic Measurement: 150 Diastolic Measurement: 72 Screening for High Blood Pressure: Patient Exclusion, Hx of HTN [G9744]
== END 2017-10-23 14:50 | disposition home or self-care (01) ==
LOC: ER 13:59
DX: Z48.02 Encounter for removal of sutures (principal)

== ENCOUNTER 2019-07-11 22:46 | Emergency (ER) | payer MEDICARE, BC ==
--- NOTE | 2019-07-11 23:10 | Emergency Department Record ---
History of Present Illness - General Chief complaint: Weakness Stated complaint: WEAKNESS Time Seen by Provider: 07/11/19 22:53 Source: Patient, EMS Mode of Arrival: EMS Limitations: No limitations - History of Present Illness Initial comments: 73 yo female presents to ED for evaluation of an episode of feeling "flushed, limbs were heavy, thing got dark-I just felt weird". Patient's SO reports similar symptoms following TIA x 2, is currently being followed by Dr. Alston [facility]. 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 Patient reports that her symptoms have resolved and that she is feeling back to her baseline. 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 MD Complaint: Generalized weakness Onset/Timin -: Minutes(s) Location: LLE, RLE Severity: Moderate Consistency: Now resolved Improves with: None Worsens with: None Associated Symptoms: Denies other symptoms - Leti Coma Scale Eye Response: (4) Open spontaneously Motor Response: (6) Obeys commands Verbal Response: (5) Oriented Leti Total: 15 - Related Data Home Medications Medication Instructions Recorded Confirmed Last Taken Amlodipine Besylate [Norvasc] 5 mg PO DAILY 07/11/19 07/11/19 07/11/19 Metoprolol Tartrate [Lopressor] 1 tab PO BID 07/11/19 07/11/19 07/11/19 Allergies Allergy/AdvReac Type Severity Reaction Status Date / Time aspirin AdvReac NAUSEA Verified 10/23/17 14:18 celecoxib [From Celebrex] AdvReac NAUSEA AND Verified 10/23/17 14:18 VOMITING fentanyl AdvReac NAUSEA AND Verified 10/23/17 14:18 VOMITING gentamicin AdvReac RASH Verified 07/11/19 22:59 hydrocodone bitartrate AdvReac NAUSEA AND Verified 10/23/17 14:18 [From Vicodin] VOMITING NSAIDS (Non-Steroidal AdvReac NAUSEA AND Verified 10/23/17 14:18 Anti-Inflamma VOMITING sulfamethoxazole AdvReac caused a Verified 10/23/17 14:18 [From Bactrim] kamran trimethoprim [From Bactrim] AdvReac caused a Verified 10/23/17 14:18 kamran Travel Screening - Travel/Exposure Within Last 30 Days Have you traveled within the last 30 days?: No - Travel/Exposure Within Last Year Have you traveled outside the [place] in the last year?: No - Additonal Travel Details Have you been exposed to anyone with a communicable illness?: No - Travel Symptoms Symptom Screening: None Review of Systems Constitutional: Reports: Weakness. Denies: Chills, Fever, Malaise, Night sweats Eyes: Denies: Eye discharge, Eye pain ENT: Denies: Congestion, Ear pain Respiratory: Denies: Cough, Dyspnea Cardiovascular: Denies: Chest pain, Dyspnea on exertion Endocrine: Reports: Fatigue. Denies: Heat or cold intolerance Gastrointestinal: Denies: Abdominal pain, Nausea, Vomiting Genitourinary: Denies: Incontinence, Retention Musculoskeletal: Denies: Arthralgia, Back pain Skin: Denies: Bruising, Change in color Neurological: Denies: Abnormal gait, Confusion, Headache, Seizure Psychiatric: Denies: Anxiety Hematological/Lymphatic: Reports: Easy bleeding, Easy bruising. Denies: Anemia, Blood Clots Past Medical History - SOCIAL HISTORY Smoking Status: Never smoker Alcohol Use: None Drug Use: None - RESPIRATORY Hx Respiratory Disorders: Yes Hx Asthma: Yes Hx Bronchitis: No Hx COPD: No Hx Dyspnea: No Hx Pneumonia: No Hx Pulmonary Embolism: No Hx Sleep Apnea: Yes Hx of CPAP: Yes Comment:: pulmonary hypertension, 2L of O2 when laying down or at night - CARDIOVASCULAR Hx Cardio Disorders: Yes Hx Abnormal EKG: Yes Hx Cardiac Cath: Yes Hx Chest Pain: No Hx CHF: No Hx Deep Vein Thrombosis: No Hx Edema: No Hx Heart Attack: Yes Hx Hypertension: Yes (pulmonary) Hx Hypotension: No Hx Irregular Heartbeat: No Hx Palpitations: No Hx Pacemaker/Defib: Yes Hx Vascular Disease: No Comment:: hx of afib - NEURO Hx Neuro Disorders: Yes Hx Brain Tumor: No Hx CVA: No Hx Dementia: No Hx Dizziness: No Hx Headaches: No Hx Neuropathy: No Hx Parkinson's Disease: No Hx Seizures: No Hx Speech Problem: No Hx TIA: No Comment:: visual auras for about 10 years - GI Hx GI Disorders: Yes Hx Abdominal Pain: No Hx Celiac Disease: No Hx Crohn's Disease: No Hx Diverticulitis: No Hx GI Bleed: No Hx Reflux: No Hx Hepatitis/Jaundice: No Hx Hiatal Hernia: No Hx Irritable Bowel: No Hx Liver Disease: No Hx Nausea/Vomiting: No Hx Obstructive Bowel: No Hx Pancreatitis: No Hx Rectal Bleeding: No Hx Ulcer: No Hx Wt Loss/Wt Gain: No Hx of Polyps: No Comment:: fluxuates between diarrhea and constipation - Hx Genitourinary Disorders: No Comment:: incontinence - ENDOCRINE Hx Endocrine Disorders: Yes Hx Diabetes: Yes Hx Thyroid Disease: Yes - MUSCULOSKELETAL Hx Musculoskeletal Disorders: Yes Hx Arthritis: Yes Hx Back Injury: No Hx Fibromyalgia: Yes Hx Gout: No Hx Musculoskeletal Disease: No Hx Osteoporosis: No - PSYCH Hx Psych Problems: Yes Hx Anxiety: Yes Hx Behavior Problems: No Hx Depression: Yes Hx Emotional Abuse: No Hx Sexual Abuse: No Hx Suicide Attempt: No Comment:: has no thoughts of committing suicide. - HEMATOLOGY/ONCOLOGY Hx Hematology/Oncology Disorders: Yes Hx Anemia: Yes Hx Blood Disorders: Yes Hx Bruising: Yes Hx Cancer: Yes (basal cell carcinoma) Hx Chemotherapy: No Hx Radiation Therapy: No Hx Clotting Problems: No Hx Sickle Cell Disease: No Hx Unexplained Bleeding: No Hx Blood Transfusions: No Hx Blood Transfusion Reaction: No Comment:: polycythemia Family Medical History Any Significant Family History?: No Hx Stroke: Mother Physical Exam - General General Appearance: Alert, Oriented x3, Cooperative, No acute distress Limitations: No limitations - Head Head exam: Atraumatic, Normocephalic, Normal inspection Head exam detail: negative: Abrasion, Contusion, Mcfadden's sign, General tenderness, Hematoma, Laceration - Eye Eye exam: Normal appearance. negative: Conjunctival injection, Periorbital swelling, Periorbital tenderness, Scleral icterus - ENT Ear exam: negative: Auricular hematoma, Auricular trauma Nasal Exam: negative: Active bleeding, Discharge, Dried blood, Foreign body Mouth exam: negative: Drooling, Laceration, Muffled voice, Tongue elevation - Neck Neck exam: Normal inspection. negative: Meningismus, Tenderness - Respiratory Respiratory exam: Normal lung sounds bilaterally. negative: Rales, Respiratory distress, Rhonchi, Stridor - Cardiovascular Cardiovascular Exam: Regular rate, Normal rhythm, Normal heart sounds - GI/Abdominal GI/Abdominal exam: Soft. negative: Rebound, Rigid, Tenderness - Rectal Rectal exam: Deferred - exam: Deferred - Extremities Extremities exam: Pedal edema, Other (Chronic ulcerations to the LEs bilaterally) - Back Back exam: Denies: CVA tenderness (R), CVA tenderness (L) - Neurological Neurological exam: Alert, CN II-XII intact, Oriented X3, Other (NIH stroke scale 0 on examination.). negative: Motor sensory deficit - Psychiatric Psychiatric exam: Normal affect, Normal mood - Skin Skin exam: Normal color. negative: Abrasion Type of lesion: negative: abrasion Course Vital Signs 07/11/19 22:51 Temperature 97.5 F L Pulse Rate 62 Respiratory 20 Rate Blood Pressure 178/62 Pulse Ox 93 L - Reevaluation(s) Reevaluation #1: 07/11/19 23:10 EKG: Paced rhythm 60 No further analysis due to pacing. Reevaluation #2: 07/11/19 23:32 Laboratory studies were reviewed and appear grossly unremarkable for an acute process except for the following: GFR 31 (at baseline) Patient is currently in CT, UA pending. Reevaluation #3: 07/11/19 23:42 CT Brain: No acute intracranial process Reevaluation #4: 07/12/19 00:18 UA was reviewed: 16-25 RBCs 16-20 WBCs 2+ bacteria Patient's SO reports that the patient has chronic colonization of the bladder. Reevaluation #5: 07/12/19 00:32 Patient and her SO were updated on all results, discussed transfer for Neurology consultation and possible MRI as well as treatment for her UTI. Patient reports that she will follow-up with Dr. Mariano re: UTI, and is declining antibiotic treatment at this time. Following discussion with the patient regarding transfer, patient and her SO report that they want to leave AMA at this time. Risks of , permanent impairment, or worsening of their current condition were discussed as well as the benefit of transfer for neurological consultation and for further evaluation of their presenting symptoms. Patient verbalizes understanding of all risks and benefits, desires to leave AMA despite these risks. Based on my examination, the patient is alert, oriented, and answers all questions appropriately. Patient appears to have the capacity to make rational decisions based on my examination. Patients SO was present for the duration of our discussion as well. Patient was encouraged to return to the ED immediately if they change th eir mind about treatment and want to be re-evaluated. Medical Decision Making - Lab Data Result diagrams: 07/11/19 23:05 07/11/19 23:05 Disposition Disposition: Discharge Clinical Impression: TIA (transient ischemic attack) UTI (urinary tract infection) Qualifiers: Urinary tract infection type: acute cystitis Hematuria presence: with hematuria Qualified Code(s): N30.01 - Acute cystitis with hematuria Disposition: Against Medical Advice Condition: (2) Stable Instructions: Transient Ischemic Attack (ED) Additional Instructions: Return to ED if your symptoms worsen or if you have any concerns. Follow-up with your your Neurologist Dr. Alston tomorrow as directed. Forms: Patient Portal Access Time of Disposition: 00:32 Quality - Quality Measures Quality Measures: N/A - Blood Pressure Screening Does Patient Have Any of the Following: Active Dx of HTN Blood Pressure Classification: Hypertensive Reading Systolic Measurement: 178 Diastolic Measurement: 62 Screening for High Blood Pressure: Patient Exclusion, Hx of HTN [[id number]]
[2019-07-11 23:14] LABS: ABSOLUTE NEUTROPHIL COUNT 9.15; HEMATOCRIT 47.4 % (35.0-47.0); HEMOGLOBIN 13.5 gm/dl (11.6-16.0); MEAN CELL VOLUME 83.2 fl (81-97); MEAN CORPUSCULAR HGB CONC 28.5 g/dl (32-36); MEAN PLATELET VOLUME 10.5 fl (7.4-10.4); PLATELET COUNT 339 K/uL (130-400); RED CELL DISTRIBUTION WIDTH 21.8 % (11.5-14.5); WHITE BLOOD COUNT W/O DIFF 11.1 K/uL (4.2-12.2)
[2019-07-11 23:18] LABS: MEAN CORPUSCULAR HEMOGLOBIN 23.6 pg (27-33)
[2019-07-11 23:24] LABS: CREATININE 1.7 mg/dL (0.5-0.9)
[2019-07-11 23:25] LABS: BILIRUBIN,TOTAL 0.2 mg/dL (0.2-1.0); TOTAL PROTEIN 6.8 g/dL (6.6-8.7)
[2019-07-11 23:29] LABS: ANISOCYTOSIS 2+; HYPOCHROMIA 1+
[2019-07-11 23:30] LABS: ALB/GLOB RATIO 0.9 (1.1-1.8); ALBUMIN 3.2 g/dL (4.0-5.0)
--- NOTE | 2019-07-11 23:44 | CT SCAN REPORT ---
EXAMINATION: CT Head without IV Contrast EXAM DATE: 07/11/2019 11:37 PM TECHNIQUE: Standard protocol CT images of the head were obtained without intravenous contrast. Palm l and sagittal reconstructed images were created. INDICATION: possible TIA COMPARISON: 10/13/2017 HAND DOMINANCE: Unknown. ENCOUNTER: Not applicable FINDINGS: 1. There is no intracranial mass, midline shift, extraaxial fluid collection or acute hemorrhage. 2. The ventricles, sulci and cisterns are normal for age. 3. There are no suspicious areas of altered attenuation. No loss of rao-white differentiation. 4. There is no fracture. 5. The visualized aspects of the orbits, paranasal sinuses, and mastoid air cells are acutely unrema rkable. IMPRESSION: No acute hemorrhage, mass effect, or CT evidence of evolved infarction. Critical results were discussed with Dr. Roper at the time of report generation. Dictated by: Costa Cordova MD on 07/11/2019 11:38 PM. .
[2019-07-12 00:08] LABS: URINE APPEARANCE CLEAR; URINE BILIRUBIN NEGATIVE (NEGATIVE); URINE BLOOD LARGE (NEGATIVE); URINE COLOR YELLOW; URINE KETONE NEGATIVE (NEGATIVE); URINE LEUKOCYTE ESTERASE SMALL (NEGATIVE); URINE NITRITE POSITIVE (NEGATIVE); URINE UROBILINOGEN 0.2 E.U./dL (0.20 - 1.00)
[2019-07-12 00:15] LABS: URINE BACTERIA 2+; URINE EPITHELIAL CELLS 0 - 2 (FEW); URINE RBC 16 - 25 (NONE SEEN); URINE WBC 16 - 20 (0-2/hpf)
== END 2019-07-12 01:45 | disposition left against medical advice (07) ==
LOC: ER 22:46
DX: G45.9 Transient cerebral ischemic attack, unspecified (principal); N30.01 Acute cystitis with hematuria; Z79.01 Long term (current) use of anticoagulants; E11.9 Type 2 diabetes mellitus without complications; I25.2 Old myocardial infarction; I27.20 Pulmonary hypertension, unspecified; Z99.81 Dependence on supplemental oxygen; Z79.4 Long term (current) use of insulin
CPT/HCPCS: 70450; 80053; 81001; 84484; 85027; 93005; 93010; 99285